=== PATIENT | female | born 1940 | race Caucasian/White ===

== ENCOUNTER 2017-06-14 13:34 | Inpatient (IN) | payer MEDICARE, BC ==
[~2017-06-14 13:34] MED LIST: ISOVUE-370 76%-LOCM 1 ML ONE
[2017-06-14 14:09] LABS: #Basophils 0.1 thou/uL (0.0-0.2); #Eosinphils 0.2 thou/uL (0.0-0.7); #Lymphocytes 2.4 thou/uL (1.20-3.40); #Monocytes 0.8 thou/uL (0.11-0.59); #Neutrophils 5.8 thou/uL (1.40-6.50); %Basophils 1.4 % (0.0-1.0); %Eosinophils 1.9 % (0.0-10.0); %Lymphocytes 25.6 % (21.0-51.0); %Monocytes 8.6 % (0.0-10.0); %Neutrophils 62.6 % (42.0-75.0); Hemoglobin 14.6 g/dL (12.0-16.0); Mean Corpuscular HGB CONC 33.9 g/dL (32.0-36.0); Mean Corpuscular Hemoglobin 32.7 pg (27.0-31.0); Mean Corpuscular Volume 96.4 fl (81.0-99.0); Mean Platelet Volume 7.4 fL (7.4-10.4); Platelet Count 205 thou/uL (130-400); RBC Distribution Width 11.6 % (11.5-14.5); Red Blood Cell (RBC) Count 4.47 mill/uL (4.20-5.40); White Blood Cell (WBC) Count 9.2 thou/uL (4.8-10.8)
--- NOTE | 2017-06-14 14:12 | RAD ---
SINGLE VIEW CHEST: Date: 06/14/17 COMPARISON: 08/28/13. HISTORY: Dyspnea and shortness of breath. FINDINGS: Single view of the chest shows normal sized cardiomediastinal silhouette with atherosclerotic calcifi cations in the aorta. A calcified granuloma is seen in the left upper lobe. There is no evidence of c onsolidation or pleural effusion. IMPRESSION: No evidence of acute cardiopulmonary disease. POS: [facility]
[2017-06-14 14:27] LABS: ALT (SGPT) 11 U/L (8-55); AST (SGOT) 13 U/L (5-34); Albumin 3.9 g/dL (3.4-4.8); Alkaline Phosphatase 93 U/L (40-150); Anion Gap 15 mmol/L (10-20); BUN (Urea Nitrogen) 26 mg/dL (9.8-20.1); Bilirubin, Total 0.6 mg/dL (0.2-1.2); CK (CPK) 34 U/L (29-168); Calc. Creatinine Clearance 0 mL/min (70-130); Calcium 9.7 mg/dL (7.8-10.44); Carbon Dioxide 21 mmol/L (23-31); Chloride 106 mmol/L (98-107); Estimated GFR-MDRD 67; Globulin 2.7 g/dL (2.4-3.5); Glucose 105 mg/dL (83-110); Potassium 3.7 mmol/L (3.5-5.1); Protein, Total 6.6 g/dL (6.0-8.3); Sodium 138 mmol/L (136-145)
[2017-06-14 14:32] LABS: CKMB 0.8 ng/mL (0-6.6); Troponin I Less than 0.010 ng/mL (< 0.028)
[2017-06-14 16:20] LABS: Troponin I Less than 0.010 ng/mL (< 0.028)
[2017-06-14] MEDS ORDERED: Ondansetron HCl/PF 4 MG/2 ML Vial IVP PRN (16:47)
[2017-06-14] MEDS ORDERED: Ondansetron ODT 4 MG TAB SL PRN (16:47)
[2017-06-14] MEDS ORDERED: Sodium Chloride 0.9% 1,000 ML IV SCH (16:47)
[2017-06-14 16:50] VITALS: BMI 27.1
[2017-06-14] MEDS ORDERED: Acetaminophen 325 MG TAB PO PRN (16:59)
[2017-06-14] MEDS ORDERED: Zolpidem Tartrate 5 MG TAB PO PRN (16:59)
[2017-06-14] MEDS ORDERED: Nitroglycerin 0.4 MG TAB (25 Tab Bottle) PO PRN (16:59)
[2017-06-14] MEDS ORDERED: ALPRAZolam 0.25 MG TAB PO PRN (17:04)
[2017-06-14 19:12] LABS: Troponin I Less than 0.010 ng/mL (< 0.028)
--- NOTE | 2017-06-14 19:13 | CON ---
DATE OF CONSULTATION: 06/14/2017 REASON FOR CONSULTATION: Shortness of breath. REFERRING PROVIDER: Dr. Johnathon Bruce. HISTORY OF PRESENT ILLNESS: Ms. Quinteros is a very pleasant 77-year-old woman with previous history of atrial fibrillation with ablation, who recently presented with shortness of breath. She states it began on Saturday. She bent over to bake something up and developed shortness of breath. It has been noted over the last 5 days. She states she has difficulty walking across the room due to shortness o f breath. No significant chest pain or pressure noted. She has no previous history of underlying co ronary disease. PAST MEDICAL HISTORY: atrial fibrillation, chronic back pain. PAST SURGICAL HISTORY: Cholecystectomy, hysterectomy. SOCIAL HISTORY: No current tobacco or alcohol use. ALLERGIES: None. MEDICATIONS: Include citalopram, levothyroxine, pantoprazole, captopril, Wellbutrin, and Meloxicam. REVIEW OF SYSTEMS: Ten-point review of systems reviewed and as above, otherwise negative. PHYSICAL EXAMINATION: GENERAL: Patient is a pleasant female who is in no acute distress. The patient appears her stated a ge. VITAL SIGNS: Blood pressure 139/64, pulse 92, respirations 20. NEUROLOGIC: The patient is alert and oriented times 3 with no focal neurologic deficits. HEENT: Sclerae without icterus. Mouth has moist mucous membranes with normal pallor. NECK: No JVD. Carotid upstroke brisk. No bruits bilaterally. LUNGS: Clear to auscultation with unlabored respirations. BACK: No scoliosis or kyphosis. CARDIAC: Regular rate and rhythm with normal S1 and S2. No S3 or S4 noted. No significant rubs, murmurs, thrills, or gallops noted throughout the precordium. PMI is not displa nataly. There is no parasternal heave. ABDOMEN: Soft, nontender, nondistended. No peritoneal signs present. No hepatosplenomegaly. No abnormal striae. EXTREMITIES: 2+ femoral and 2+ dorsalis pedis pulses. No cyanosis, clubbing, or edema. SKIN: No gross abnormalities. PERTINENT LABORATORY DATA: CO2 of 21, creatinine 0.83. CK and troponin negative. D-Dimer pending. EKG: Normal sinus rhythm and nonspecific ST-T wave changes. IMPRESSION: 1. Shortness of breath, acute onset. 2. Atrial fibrillation. RECOMMENDATIONS: Ms. Aldair symptoms, I would certainly suggest the cardiac origin. We will order D-Dimer to assess for potential PE. I would recommend a noninvasive test done in the a.m. if her D- dimer is negative. Further recommendations pending the above.
--- NOTE | 2017-06-14 20:20 | CT ---
CT ANGIOGRAM CHEST WITH CONTRAST 06/14/17 HISTORY: Elevated D-dimer. Shortness of breath. COMPARISON: Chest radiograph same day. TECHNIQUE: CT angiogram chest performed with intravenous administration of contrast. 3D rendering is provided. FINDINGS: Multifocal segmental pulmonary arterial filling defects. These involve the upper lobes, lower lobes, lingula, and right middle lobe. No pericardial effusion. No evidence for right heart strain. Pulmonary trunk size is 24 mm, normal. N o aneurysmal dilatation of the aorta. Mild atherosclerotic plaque. Multiple partially calcified mediastinal lymph nodes as well as splenic granulomas. No pneumothorax. No pericardial effusion. There is a ground glass opacity within the lingula which do es not have a definite appearance of atelectasis. No thoracic spine compression fracture. No displaced rib fracture. IMPRESSION: 1. Multifocal pulmonary emboli, segmental, without evidence of right heart strain. 2. Ground glass opacity lingula, not definitively atelectasis. Followup CT in three months recom mended. Reinier Pereira, nurse taking care of patient, notified of findings via telephone at 7:49 p.m. POS: [facility]
[2017-06-14] MEDS: Enoxaparin Sodium 80 MG/0.8 ML SYRINGE SC SCH (20:28)
[2017-06-14] MEDS: Metoprolol Tartrate 25 MG TAB PO SCH (20:30)
--- NOTE | 2017-06-14 21:13 | HP ---
DATE OF ADMISSION: 06/14/2017 ADMITTING PHYSICIAN: Johnathon Bruce M.D. HISTORY OF PRESENT ILLNESS: Patient is a 77-year-old female, well known to me. She has a previous h istory of atrial fibrillation and has undergone ablation approximately 6 years ago. She has had a re cent history of not feeling well, feeling some short of breath, states this become somewhat worse. T rosmery, she has felt like she could not exert herself fully without becoming dyspnea. She did note henrry t she bent over felt like her heart was racing, seemingly there is some chest discomfort. She seemed to have an associated left-arm symptomatology with some discomfort. She notes that the pain is reso lved, and she is feeling better at rest. She had brought herself to the emergency room. She notes t hat over the last several weeks, she is becoming increasingly breathless, especially with exertion. She has not noted any fever, nausea, vomiting. Actually, she denies any symptoms of chest pain at th is time. As noted, she has noted some palpitations. She felt like she has been in atrial fibrillati on, this has not been documented. She has been seen in my office over the last 2-3 months with some stress related issues. She has recently undergone MRI of the brain, which was normal. She was worri ed about having dementia, although she has not had any further dementia symptomatology other than her worries about it. At this time, she is currently resting, feeling comfortable, and no other medical complaints are noted. ALLERGIES: She has no known allergies. CURRENT MEDICATIONS: Citalopram 40 mg daily, levothyroxine 0.125 mg daily, pantoprazole 40 mg daily, captopril 25 mg b.i.d., Wellbutrin 150 mg daily, meloxicam 15 mg daily, alprazolam 0.25 mg b.i.d. p. r.n. anxiety. PAST MEDICAL HISTORY: Positive for the above noted atrial fibrillation. She has undergone ablations in the past with good success. Medical history is also positive for hypothyroidism, depression. PAST SURGICAL HISTORY: Positive for colon resection, hysterectomy, cholecystectomy. REVIEW OF SYSTEMS: Gastrointestinal: Negative. Genitourinary: Negative. Cardiovascular: Positiv e as above. Neurologic: Positive for her worries about dementia, although this seems to be relieved a little bit. Neuropsychiatric: She has stress at home. Her who is in a long-term and has severe dementia. Musculoskeletal: Otherwise, negative. FAMILY HISTORY: Positive for atherosclerotic coronary artery disease. PHYSICAL EXAMINATION: VITAL SIGNS: Her blood pressure is 160/74, pulse 92, respirations 22, O2 sat 96%. GENERAL: She is alert, active, does not appear in any distress. HEENT: Normocephalic, atraumatic. Extraocular muscles are intact. Pupils are equal, round, and samreen ctive to light. Throat is clear without exudates or hemorrhages. NECK: Supple, full range of motion, no masses. LUNGS: Clear. HEART: Reveals a regular rate and rhythm without murmurs, gallops, or rubs. ABDOMEN: Soft, nontender, bowel sounds are active. No hepatosplenomegaly is noted. No evidence of rebound or guarding otherwise noted. EXTREMITIES: No clubbing, edema, or cyanosis noted at this time. LABORATORY AND X-RAY FINDINGS: Chest x-ray is otherwise clear. Troponins x2 were normal. Chemistry : Sodium 138, potassium 3.7, chloride 106, CO2 of 21, BUN 26, creatinine 0.83. Hemoglobin 14.6, hem atocrit 43.0. EKG reveals sinus rhythm without acute changes. IMPRESSION: This is a 77-year-old female with previous history of atrial fibrillation, status post a blation, presents with symptoms appears to be anginal equivalent with dyspnea upon exertion, not have any chest pain, but story is very compatible with possible anginal. PLAN: Patient will be placed in observation. Cardiology consult will be obtained. I spoke with Dr. Bess about her. We will go ahead and order stress testing, further cardiac enzymes. I have di scussed the situation with the patient and family at the bedside. They are in full understanding of the process of workup and evaluation.
[2017-06-14] MEDS: ALPRAZolam 0.25 MG TAB PO PRN (22:02)
[2017-06-15] MEDS: Levothyroxine Sodium 100 MCG TAB PO SCH (05:56)
[2017-06-15 06:05] LABS: Cardiac Risk 2.7 (Less than 4.5)
--- NOTE | 2017-06-15 07:38 | ULT ---
BILATERAL LOWER EXTREMITY VENOUS DUPLEX ULTRASOUND INCLUDING COLOR AND SPECTRAL DOPPLER IMAGING: Date: 06/15/17 HISTORY: 77-year-old female with known pulmonary embolism. Elevated D-Dimer. TECHNIQUE: Exam performed from groin to ankle including visualized greater saphenous, common femoral, superficia l femoral, profunda femoral, popliteal, trifurcation, and posterior tibial vein regions. FINDINGS: The right lower extremity shows no evidence of deep venous thrombosis. In the left lower extremity, there is evidence for intraluminal thrombus within the left popliteal ve in and posterior tibial vein, and the distal superficial femoral vein. IMPRESSION: Persistent thrombus in the distal superficial femoral vein, popliteal vein, and posterior tibial vein . Findings were discussed with nurse, Vicky, on the floor at 0730 hours. CODE CR. POS: [facility]
[2017-06-15] MEDS: Aspirin 325 MG TAB PO SCH (08:18)
[2017-06-15] MEDS: Citalopram 20 MG TAB PO SCH (08:18)
[2017-06-15] MEDS: Enoxaparin Sodium 80 MG/0.8 ML SYRINGE SC SCH (08:18)
[2017-06-15] MEDS: Metoprolol Tartrate 25 MG TAB PO SCH ×2 (08:18→20:48)
[2017-06-15] MEDS ORDERED: Levothyroxine Sodium 100 MCG TAB PO SCH (09:00)
[2017-06-15] MEDS ORDERED: Aspirin 325 MG TAB PO SCH (09:00)
[2017-06-15] MEDS ORDERED: Enoxaparin Sodium 40 MG/0.4 ML SYRINGE SC SCH (09:00)
--- NOTE | 2017-06-15 11:27 | PRG ---
DATE OF SERVICE: 06/15/2017 PRIMARY CARE PHYSICIAN: Dr. Johnathon Bruce. SUBJECTIVE: The patient is feeling much better. Suddenly today, she had no shortness of breath. Denies chest pain. She is ambulating in the room without difficulty, not requiring oxygen at this time. She denies nausea and vomiting. She tolerated a CT as well as venous Dopplers, and is tolerating blood thinners without any difficulties at this time. OBJECTIVE: VITAL SIGNS: Temperature 97.8, pulse of 68-81, blood pressure 137/62, respirations 18, pulse ox 96% on room air. GENERAL: She is awake and alert, in no acute distress. Speech is clear. NECK: Supple. HEART: Regular rate and rhythm. LUNGS: Clear bilaterally. ABDOMEN: Soft. EXTREMITIES: With some calf tenderness on the left side, indeterminate Homans sign on the left calf. LABORATORY DATA: White blood cell count 9.2 thousand, hemoglobin and hematocrit 14.6 and 43, platelets of 205. D-dimer was elevated at 4.53. Cholesterol 149, HDL of 56. Troponins have been negative x3. BNP was normal at 30.5. CT angiogram was positive for multifocal pulmonary emboli. Venous Dopplers revealed left-sided DVT. ASSESSMENT AND PLAN: This is a 77-year-old female who presented with worsening shortness of breath and some chest pain, now found to have bilateral multifocal PE, she was started on subcutaneous Lovenox last night and will be starting on p.o. Xarelto today for PE as well as DVT. Etiology is likely from trauma this past week and immobility at home. When she has completed 3-6 months period of anticoagulation, we will consider checking for a hypercoagulable state. I will await Dr. Pope for evaluation. I discussed possibility of an IVC filter placement. 1. Multilobar pulmonary embolism. Will transition to oral Xarelto. Possible IVC filter 2. DVT. Start Xarelto. 3. Atrial fibrillation, rate controlled at this time. Anticoagulation as above. We will prevent coagulation from the atrial fibrillation as well. 4. Hypertension is stable. 5. Anxiety with depression. I will continue home meds. MTDD
[2017-06-15 14:15] LABS: Hemoglobin 13.7 g/dL (12.0-16.0); Platelet Count 170 thou/uL (130-400)
[2017-06-15 15:45] LABS: INR-International Normal Ratio 1.1
[2017-06-15 15:46] LABS: PTT 36.7 SEC (22.9-36.1)
[2017-06-15 15:47] LABS: D-Dimer Test 2.59 *mcg/mL (0.27-0.43)
--- NOTE | 2017-06-15 16:11 | CON ---
DATE OF CONSULTATION: 06/15/2017 HISTORY OF PRESENT ILLNESS: A 77-year-old female from [place], [place] presented with about a week h istory of weakness, shortness of breath, lightheadedness. She called her primary care physician and felt that she was having some palpitations and lightheadedness. Apparently, she has previous history of atrial fibrillation which was treated with ablation. Nonsmoker. No history of TB, pneumonia or bronchial asthma. D-dimer study was done, which was positive. CAT scan of the chest showed bilateral pulmonary emboli. Ultrasound of the legs shows left-sided superficial DVT in the femoral vein and popliteal vein. She was started on Lovenox, today she was on Xarelto. No previous history of DVT or PE. No family history of PE or DVT. PAST MEDICAL HISTORY: Pertinent only for cardiac arrhythmias. PAST SURGICAL HISTORY: In the remote past, cholecystectomy and colon surgery. MEDICATIONS: From home includes Celexa, Synthroid 25, Protonix 40, Captopril 25, Wellbutrin and Mayo xicam. 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 REVIEW OF SYSTEMS: Otherwise, 10-point negative. PHYSICAL EXAMINATION: VITAL SIGNS: Sats 93 on room air, temperature 97, pulse 79, and blood pressure 120/60. CHEST: Decreased breath sounds, no wheezing. CARDIAC: Normal S1, S2. No gallops. ABDOMEN: Soft, no masses. LABORATORY DATA: D-dimer was 5.3. White count 9000, H and H 14 and 43, platelet count is normal. C hemistry unremarkable. X-ray was normal. Thyroid function is normal. CAT scan shows bilateral pulm onary emboli. IMPRESSION: 1. Bilateral pulmonary emboli with left leg deep venous thrombosis and no obvious cause of above pro blem. 2. Previous colon polyps, last colonoscopy. 3. Depression. 4. Hypothyroidism. PLAN: She needs anticoagulants for a minimum of 6 months and I ordered a hypercoagulable profile. She is to have increased level of activity. I would be happy to see her in a month. We will repeat VQ scan in the office at that time.
[2017-06-15] MEDS: Rivaroxaban 15 MG TAB PO SCH (20:47)
[2017-06-15] MEDS: ALPRAZolam 0.25 MG TAB PO PRN (20:48)
[2017-06-16] MEDS: Levothyroxine Sodium 100 MCG TAB PO SCH (05:29)
[2017-06-16 05:33] LABS: #Eosinphils 0.7 thou/uL (0.0-0.7); #Lymphocytes 3.1 thou/uL (1.20-3.40); #Monocytes 0.5 thou/uL (0.11-0.59); #Neutrophils 2.2 thou/uL (1.40-6.50); %Basophils 0.6 % (0.0-1.0); %Lymphocytes 46.9 % (21.0-51.0); %Monocytes 8.1 % (0.0-10.0); %Neutrophils 33.4 % (42.0-75.0); Hemoglobin 12.9 g/dL (12.0-16.0); Mean Corpuscular HGB CONC 34.3 g/dL (32.0-36.0); Mean Corpuscular Hemoglobin 32.7 pg (27.0-31.0); Mean Corpuscular Volume 95.4 fl (81.0-99.0); Mean Platelet Volume 8.6 fL (7.4-10.4); Platelet Count 195 thou/uL (130-400); RBC Distribution Width 11.6 % (11.5-14.5); Red Blood Cell (RBC) Count 3.93 mill/uL (4.20-5.40); White Blood Cell (WBC) Count 6.6 thou/uL (4.8-10.8)
[2017-06-16] MEDS: Famotidine 20 MG TAB PO SCH (08:56)
[2017-06-16] MEDS: Rivaroxaban 15 MG TAB PO SCH ×2 (08:56→20:48)
[2017-06-16] MEDS: Citalopram 20 MG TAB PO SCH (08:56)
[2017-06-16] MEDS: Aspirin 325 MG TAB PO SCH (08:57)
[2017-06-16] MEDS: Metoprolol Tartrate 25 MG TAB PO SCH (09:01)
--- NOTE | 2017-06-16 15:49 | DIS ---
DATE OF ADMISSION: 06/14/2017 DATE OF DISCHARGE: 06/16/2017 ADMISSION DIAGNOSES: Bilateral pulmonary embolism, left deep venous thrombosis. DISCHARGE DIAGNOSES: Bilateral pulmonary embolism, left deep venous thrombosis. OTHER DIAGNOSES: Paroxysmal atrial fibrillation, anxiety, hypothyroidism, depression. CONSULTATIONS: Dr. Pope for Pulmonary. PROCEDURES: Subcutaneous Lovenox, telemetry monitoring, rule out myocardial infarction. HOSPITAL COURSE: This is a 77-year-old patient of Dr. Johnathon Bruce with a history of paroxysmal atr ial fibrillation status post ablation 6 years ago, who was admitted for shortness of breath worse wit h exertion. She was admitted with rule out NH protocol. She eventually ruled out for an NH. She wa s seen by Dr. Bess. She was found to have elevated D-dimer and then subsequently had a positive CT angiogram of her chest which revealed bilateral multifocal pulmonary emboli. Her DVT screen of h er venogram was positive for DVT on her left leg. She was initially started on subcu Lovenox and the n transitioned to oral Xarelto and has been tolerating that well. She had one episode of shortness o f breath after getting up in the morning, but that resolved spontaneously and she was feeling back to her baseline prior to discharge. Coagulation studies were pending to be followed up as an outpatien t as well as with Dr. Pope as an outpatient. DISCHARGE PHYSICAL EXAMINATION: VITAL SIGNS: Temperature 98.1, pulse of 68 and regular, respirations 18-20, blood pressure 124/57. Pulse ox is 95% on room air. GENERAL: She is awake and alert. Speech is clear. No conversational dyspnea. NECK: Supple. HEART: Regular rate and rhythm. LUNGS: Clear bilaterally. ABDOMEN: Soft. EXTREMITIES: With no edema. DISCHARGE LABS: Homocystine was normal. Cholesterol panel was normal. Troponin was negative x3. A gain, coagulation panel was pending. Hemoglobin and hematocrit 12.9 and 37.5. DISCHARGE MEDICATIONS: Include Tylenol p.r.n., Xanax 0.25 mg at bedtime p.r.n. sleep, captopril 25 m g b.i.d., Celexa 40 mg daily, Synthroid 100 mcg daily, Lopressor 25 mg b.i.d., Xarelto 15 mg b.i.d. f or 21 days and then 20 mg daily for 6 months. FOLLOWUP INSTRUCTIONS: The patient to follow up with Dr. Bruce in [address] Pope in 1 dipak h.
--- NOTE | 2017-06-16 18:21 | PRG ---
DATE OF SERVICE: 06/16/2017 SUBJECTIVE: This morning, she is better. She is little bit hypertensive, but denies any shortness o f breath or cough. OBJECTIVE: VITAL SIGNS: Sats are 90% on room air, pulse 56, blood pressure 160/70, respiratory rate 18. CHEST: Chest reveals decreased breath sounds, no wheezing. CARDIAC: Normal S1, S2. ABDOMEN: Soft, no masses. LABORATORY DATA: White count 6, H and H is 12 and 37, platelet count is normal. IMPRESSION: 1. Pulmonary embolism, deep venous thrombosis. 2. Bradycardia. PLAN: Tylenol, continue Xarelto. Hopefully, she is stable for discharge home. Six months of anticoagulation.
[2017-06-16] MEDS: ALPRAZolam 0.25 MG TAB PO PRN (20:48)
[2017-06-17] MEDS: Levothyroxine Sodium 100 MCG TAB PO SCH (06:06)
--- NOTE | 2017-06-17 07:42 | DPRG ---
DATE OF SERVICE: 06/17/2017 Ms. Quinteros was discharged yesterday; however, she spent one more night in the hospital due to short ness of breath. She has had no further shortness of breath or dyspnea. She is feeling well. She is ready to go home. PHYSICAL EXAMINATION: VITAL SIGNS: BP 124/62, pulse 75 and regular, temperature 99.3. LUNGS: Clear. HEART: Reveals no murmur. IMPRESSION: Pulmonary embolus. PLAN: She will be discharged home today on her home medications as well as Xarelto 15 mg b.i.d. She will follow up with me in 1 week.
[2017-06-17 08:35] VITALS: BP 129/59; TEMP 98.8
[2017-06-17] MEDS: Rivaroxaban 15 MG TAB PO SCH (09:12)
[2017-06-17] MEDS: Famotidine 20 MG TAB PO SCH (09:12)
[2017-06-17] MEDS: Citalopram 20 MG TAB PO SCH (09:12)
[2017-06-17] MEDS: Aspirin 325 MG TAB PO SCH (09:12)
[2017-06-17 12:29] LABS: Protein C Activity 114 % (78-152)
[2017-06-17 12:30] LABS: Factor VIII Test 230.6 % ACTIVE (56-157)
[2017-06-25 11:25] LABS: Activated Protein C Resistance 2.9 ratio (.); Hexagonal Phospholipid Neut 4 sec (.)
--- NOTE | 2017-07-11 19:06 | EKG ---
Test Reason : Blood Pressure : / mmHG Vent. Rate : 060 BPM Atrial Rate : 060 BPM P-R Int : 164 ms QRS Dur : 084 ms QT Int : 426 ms P-R-T Axes : 000 035 060 degrees QTc Int : 426 ms Normal sinus rhythm Normal ECG When compared with ECG of 14-JUN-2017 13:39, (Unconfirmed) Vent. rate has decreased BY [address] elevation now present in Anterior leads Confirmed by DR. Dionisio SIMPSON ([id number]) on 07/11/2017 7:06:32 PM Referred By: JACKSON Confirmed By:DR. Dionisio SIMPSON
== END 2017-06-17 09:32 | disposition home or self-care (01) | DRG 176 ==
LOC: ERS 13:34 → 2SW 16:40 → OBSVTOIN 20:11 → 2NO 21:54
PROVIDERS: ADMIT Family Medicine; ATTEND Family Medicine
DX: I26.99 Other pulmonary embolism without acute cor pulmonale (principal); I48.0 Paroxysmal atrial fibrillation; I82.412 Acute embolism and thrombosis of left femoral vein; I82.432 Acute embolism and thrombosis of left popliteal vein; F41.9 Anxiety disorder, unspecified; E03.9 Hypothyroidism, unspecified; F32.9 Major depressive disorder, single episode, unspecified; Z90.49 Acquired absence of other specified parts of digestive tract; Z90.710 Acquired absence of both cervix and uterus; R00.1 Bradycardia, unspecified
CPT/HCPCS: 36415; 36416; 71045; 71275; 80053; 80061; 81240; 82550; 82553; 82565; 83090; 83605; 83880; 84484; 85014; 85018; 85025; 85049; 85240; 85300; 85303; 85305; 85307; 85379; 85598; 85610; 85730; 87040; 87804; 93005; 93010; 93970; 94760; J1650

== ENCOUNTER 2017-07-05 12:54 | Emergency (ER) | payer MEDICARE, BC ==
[2017-07-05 13:30] LABS: #Eosinphils 0.2 thou/uL (0.0-0.7); #Lymphocytes 2.7 thou/uL (1.20-3.40); #Monocytes 0.4 thou/uL (0.11-0.59); #Neutrophils 4.4 thou/uL (1.40-6.50); %Basophils 0.6 % (0.0-1.0); %Eosinophils 2.1 % (0.0-10.0); %Lymphocytes 34.5 % (21.0-51.0); %Monocytes 5.8 % (0.0-10.0); Hemoglobin 14.5 g/dL (12.0-16.0); Mean Corpuscular HGB CONC 33.9 g/dL (32.0-36.0); Mean Corpuscular Hemoglobin 32.5 pg (27.0-31.0); Mean Corpuscular Volume 95.8 fl (81.0-99.0); Platelet Count 305 thou/uL (130-400); RBC Distribution Width 11.7 % (11.5-14.5); Red Blood Cell (RBC) Count 4.46 mill/uL (4.20-5.40); White Blood Cell (WBC) Count 7.7 thou/uL (4.8-10.8)
--- NOTE | 2017-07-05 13:45 | RAD ---
PORTABLE CHEST 1 VIEW: Date: 07/05/17 Time: 1413 hours HISTORY: Dyspnea. FINDINGS: Comparison made with exam of 06/14/17. The heart size is normal. The lungs are well expanded without focal areas of consolidation, pneumotho rax, or pleural effusions. IMPRESSION: No radiographic evidence of acute cardiopulmonary process. POS: [facility]
[2017-07-05 13:55] LABS: ALT (SGPT) 9 U/L (8-55); AST (SGOT) 13 U/L (5-34); Alkaline Phosphatase 92 U/L (40-150); Anion Gap 11 mmol/L (10-20); BUN (Urea Nitrogen) 24 mg/dL (9.8-20.1); Bilirubin, Total 0.4 mg/dL (0.2-1.2); CK (CPK) 31 U/L (29-168); Calc. Creatinine Clearance 0 mL/min (70-130); Calcium 9.5 mg/dL (7.8-10.44); Carbon Dioxide 26 mmol/L (23-31); Chloride 107 mmol/L (98-107); Estimated GFR-MDRD 72; Globulin 2.8 g/dL (2.4-3.5); Glucose 93 mg/dL (83-110); Potassium 3.9 mmol/L (3.5-5.1); Protein, Total 6.8 g/dL (6.0-8.3); Sodium 140 mmol/L (136-145)
[2017-07-05 13:56] LABS: CKMB 0.8 ng/mL (0-6.6); Troponin I Less than 0.010 ng/mL (< 0.028)
[2017-07-05 14:16] LABS: INR-International Normal Ratio 2.1; PTT 35.9 SEC (22.9-36.1); Prothrombin Time 24.4 SEC (12.0-14.7)
== END 2017-07-05 17:28 | disposition home or self-care (01) ==
LOC: ERS 12:54
DX: R06.00 Dyspnea, unspecified (principal); R53.81 Other malaise; I48.91 Unspecified atrial fibrillation; E03.9 Hypothyroidism, unspecified; I10 Essential (primary) hypertension; F41.9 Anxiety disorder, unspecified; Z79.899 Other long term (current) drug therapy
CPT/HCPCS: 36415; 71045; 80053; 82553; 83880; 84484; 85025; 85379; 85610; 85730; 93005

== ENCOUNTER 2017-11-12 12:01 | Outpatient (CLI) | payer MEDICARE, BC ==
--- NOTE | 2017-11-12 14:32 | RAD ---
CHEST TWO VIEWS: HISTORY: Pulmonary embolism. COMPARISON: Radiograph from 07/05/2017. FINDINGS: The lungs are clear. No pneumothorax or effusion. The cardiac silhouette and mediastinal contour ar e within normal limits. IMPRESSION: No acute intrathoracic abnormality. POS: [facility]
--- NOTE | 2017-11-12 15:15 | NM ---
VQ SCAN: Date: 11/12/17 HISTORY: Pulmonary embolism without acute cor pulmonale. TECHNIQUE: Ventilation perfusion scan performed using 15 mCi Xenon-133 by inhalation for the ventilation study f ollowed by the intravenous administration of 5.5 mCi technetium-99m MAA for the perfusion scan. FINDINGS: Correlation is made with the chest radiographs from same date. Homogeneous tracer distribution is seen in the lung martinez on both ventilation and perfusion scans wi thout mismatched, pleural based, wedge-shaped, segmental or subsegmental defects. Mild tracer retenti on on the washout phase of the ventilation study. IMPRESSION: Very low probability for pulmonary embolism. POS: [facility]
== END 2017-11-12 12:02 | disposition home or self-care (01) ==
LOC: NM 12:01
PROVIDERS: ATTEND Internal Medicine Pulmonary Disease
DX: I26.99 Other pulmonary embolism without acute cor pulmonale (principal)
CPT/HCPCS: 71046; 78582; A9540; A9558

== ENCOUNTER 2018-02-02 20:36 | Emergency (ER) | payer MEDICARE, BC ==
[2018-02-02 20:55] LABS: #Basophils 0.1 thou/uL (0.0-0.2); #Eosinphils 0.3 thou/uL (0.0-0.7); #Lymphocytes 4.1 thou/uL (1.20-3.40); #Monocytes 0.6 thou/uL (0.11-0.59); #Neutrophils 4.4 thou/uL (1.40-6.50); %Basophils 0.7 % (0.0-1.0); %Eosinophils 2.8 % (0.0-10.0); %Lymphocytes 43.6 % (21.0-51.0); %Monocytes 6.2 % (0.0-10.0); %Neutrophils 46.7 % (42.0-75.0); Hemoglobin 14.5 g/dL (12.0-16.0); Mean Corpuscular HGB CONC 35.2 g/dL (32.0-36.0); Mean Corpuscular Hemoglobin 33.1 pg (27.0-31.0); Mean Platelet Volume 6.5 fL (7.4-10.4); Platelet Count 278 thou/uL (130-400); RBC Distribution Width 11.7 % (11.5-14.5); White Blood Cell (WBC) Count 9.4 thou/uL (4.8-10.8)
[2018-02-02 21:20] LABS: CKMB 1.6 ng/mL (0-6.6); Troponin I Less than 0.010 ng/mL (< 0.028)
[2018-02-02 21:22] LABS: ALT (SGPT) 28 U/L (8-55); AST (SGOT) 37 U/L (5-34); Albumin 4.1 g/dL (3.4-4.8); Alkaline Phosphatase 110 U/L (40-150); Anion Gap 13 mmol/L (10-20); BUN (Urea Nitrogen) 28 mg/dL (9.8-20.1); Bilirubin, Total 0.2 mg/dL (0.2-1.2); CK (CPK) 50 U/L (29-168); Calc. Creatinine Clearance 0 mL/min (70-130); Calcium 9.5 mg/dL (7.8-10.44); Carbon Dioxide 25 mmol/L (23-31); Chloride 106 mmol/L (98-107); Estimated GFR-MDRD 64; Globulin 2.9 g/dL (2.4-3.5); Glucose 81 mg/dL (83-110); Potassium 4.4 mmol/L (3.5-5.1); Sodium 140 mmol/L (136-145)
--- NOTE | 2018-02-02 21:34 | RAD ---
RADIOGRAPH CHEST 1 VIEW: HISTORY: 77-year-old female with dyspnea. FINDINGS: There are no air space densities, pulmonary edema, pneumothorax, or cardiomegaly. The lateral costop hrenic angles are sharp. IMPRESSION: No acute cardiopulmonary findings. lyle POS: [facility]
--- NOTE | 2018-02-02 22:19 | CT ---
CTA THORAX WITH CONTRAST: (Computed Tomographic Angiography, chest(noncoronary) with contrast material, and image postprocessin g) (PE protocol) HISTORY: 77-year-old female with dyspnea. TECHNIQUE: IV injection of iodinated contrast: Isovue Scan acquisition timing attempted to coincide with iodinated contrast bolus reaching maximal density in pulmonary arteries. 3D MIP reconstructions. FINDINGS: Pulmonary thromboembolism: None. Lungs: Clear. Pneumothorax: None. Pleural effusion: None. Thoracic aorta: No aneurysm or dissection. Mediastinum: No lymphadenopathy or other mass. Indira: No lymphadenopathy or other mass. IMPRESSION: Normal. lyle POS: [facility]
== END 2018-02-03 01:08 | disposition home or self-care (01) ==
LOC: ERS 20:36
DX: R06.02 Shortness of breath (principal); R09.89 Other specified symptoms and signs involving the circulatory and respiratory systems; I48.91 Unspecified atrial fibrillation; E03.9 Hypothyroidism, unspecified; I10 Essential (primary) hypertension; F41.9 Anxiety disorder, unspecified; Z79.899 Other long term (current) drug therapy
CPT/HCPCS: 71045; 71275; 80053; 82553; 84484; 85025; 93005

== ENCOUNTER 2019-02-26 09:31 | Outpatient (CLI) | payer MEDICARE, BC ==
[2019-02-26 10:38] LABS: Bacteria/HPF None Seen HPF (None Seen); Bilirubin Negative (Negative); Blood, Urine 1+ (Negative); Clarity Clear (Clear); Glucose, Urine (Dipstick) Normal (Negative); Leukocyte 75 Leu/uL (Negative); Nitrite Negative (Negative); Protein, Urine (Dipstick) Negative (Neg-Trace); Squamous Epithelial 0-3 HPF (0-3); Urobilinogen Normal mg/dL (Less than 2); WBC/HPF 0-3 HPF (0-3)
[2019-02-26 13:20] LABS: #Basophils 0.1 thou/uL (0.0-0.2); #Eosinphils 0.1 thou/uL (0.0-0.7); #Monocytes 0.6 thou/uL (0.11-0.59); #Neutrophils 4.4 thou/uL (1.40-6.50); %Basophils 0.9 % (0.0-1.0); %Eosinophils 1.7 % (0.0-10.0); %Monocytes 7.7 % (0.0-10.0); %Neutrophils 53.7 % (42.0-75.0); Hemoglobin 14.4 g/dL (12.0-16.0); Mean Corpuscular Hemoglobin 32.7 pg (27.0-31.0); Mean Corpuscular Volume 93.2 fL (78.0-98.0); Mean Platelet Volume 7.4 fL (7.4-10.4); Platelet Count 297 thou/uL (130-400); RBC Distribution Width 11.6 % (11.5-14.5); White Blood Cell (WBC) Count 8.3 thou/uL (4.8-10.8)
[2019-02-26 13:27] LABS: PTT 25.7 SEC (22.9-36.1); Prothrombin Time 12.7 SEC (12.0-14.7)
[2019-02-26 13:49] LABS: Anion Gap 12 mmol/L (10-20); BUN (Urea Nitrogen) 22 mg/dL (9.8-20.1); Calc. Creatinine Clearance 0 mL/min (70-130); Calcium 9.7 mg/dL (7.8-10.44); Carbon Dioxide 23 mmol/L (23-31); Chloride 106 mmol/L (98-107); Estimated GFR-MDRD 62; Glucose 96 mg/dL (83-110); Potassium 3.5 mmol/L (3.5-5.1); Sodium 137 mmol/L (136-145)
== END 2019-02-26 09:32 | disposition home or self-care (01) ==
LOC: LABBT 09:31
PROVIDERS: ATTEND Orthopaedic Surgery
DX: Z01.818 Encounter for other preprocedural examination (principal); M17.12 Unilateral primary osteoarthritis, left knee
CPT/HCPCS: 80048; 81001; 85025; 85610; 85730; 87081; 93005; 93010

== ENCOUNTER 2019-03-10 05:33 | Inpatient (IN) | payer MEDICARE, BC ==
[2019-02-26 11:57] VITALS: BMI 26.5
[2019-03-10] MEDS ORDERED: Sodium Chloride 0.9% 100 ML ONE (05:52)
[2019-03-10] MEDS ORDERED: Tranexamic Acid 1,000 MG/10 ML VIAL ONE (05:52)
[2019-03-10] MEDS ORDERED: Vancomycin HCl 1.5 GM in Sodium Chloride 0.9% 250 ML 300 ML IVPB SCH (06:00)
[2019-03-10] MEDS ORDERED: Midazolam HCl 2 mg/2 ml Vial ONE (06:26)
[2019-03-10] MEDS ORDERED: Fentanyl 100 MCG/2 ML VIAL ONE (06:26)
[2019-03-10] MEDS ORDERED: Ondansetron PF 4 MG/2 ML Vial ONE ×2 (06:41→12:18)
[2019-03-10] MEDS ORDERED: Zolpidem Tartrate 5 MG TAB PO PRN ×2 (07:02→07:11)
[2019-03-10] MEDS ORDERED: Ondansetron PF 4 MG/2 ML Vial IVP PRN (07:02)
[2019-03-10] MEDS ORDERED: diphenhydrAMINE 25 MG CAP PO PRN (07:02)
[2019-03-10] MEDS ORDERED: Acetaminophen 325 MG TAB PO PRN ×2 (07:07→07:14)
[2019-03-10] MEDS ORDERED: Ropivacaine HCl/PF 250 ML in Premix Bag 1 BAG NERVE BLCK SCH (07:11)
[2019-03-10] MEDS ORDERED: Promethazine HCl 25 MG/ML VIAL IM PRN ×2 (07:11→08:03)
[2019-03-10] MEDS ORDERED: HYDROcodone/Acetaminophen 10/325 mg Tablet PO PRN ×2 (07:11)
[2019-03-10] MEDS ORDERED: Ondansetron HCl/PF 4 MG/2 ML Vial IVP PRN (08:03)
[2019-03-10] MEDS ORDERED: Promethazine HCl 25 MG/ML VIAL SLOW IVP PRN (08:03)
[2019-03-10] MEDS ORDERED: Aspirin 81 mg Enteric Coated Tablet PO SCH (09:00)
--- NOTE | 2019-03-10 09:22 | RAD ---
Exam:2 views left knee HISTORY: Status post arthroplasty COMPARISON: None FINDINGS: Expected postoperative changes. Alignment is near-anatomic. IMPRESSION: Findings compatible with left knee arthroplasty.
[2019-03-10] MEDS: Fentanyl 100 MCG/2 ML VIAL SLOW IVP PRN ×2 (10:14→16:15)
[2019-03-10] MEDS ORDERED: Ropivacaine 0.2% HCl/PF (40 MG/20 ML VIAL) ONE (10:54)
[2019-03-10] MEDS ORDERED: Ropivacaine 0.5% HCl/PF (150 MG/30 ML VIAL) ONE (10:54)
[2019-03-10] MEDS: HYDROcodone/Acetaminophen 10/325 mg Tablet PO PRN ×2 (12:12→20:47)
[2019-03-10] MEDS ORDERED: PROPOFOL 200 MG/20 ML VIAL ONE (12:18)
[2019-03-10] MEDS ORDERED: Lidocaine 1% PF 5 ML VIAL ONE (12:18)
--- NOTE | 2019-03-10 13:12 | PDOC.HOSPP ---
- Subjective Encounter Date: 03/10/19 Encounter Time: 13:00 Subjective: no chest pain or sob or palp is waking up can move her left LE daughter at bedside - Objective Vital Signs & Weight: Weight Weight 185 lb I&O: 03/09/19 03/10/19 03/11/19 06:59 06:59 06:59 Output Total 100 Balance -100 Hospitalist ROS - Medication Medications: Active Medications Generic Name Dose Route Start Last Admin Trade Name Freq PRN Reason Stop Dose Admin Hydrocodone Bitart/Acetaminophen 1 tab 03/10/19 07:02 03/10/19 12:12 [place] 10/325 PO 1 tab Q4H PRN Administration Moderate Pain (4-6) Fentanyl 50 mcg 03/10/19 07:12 03/10/19 10:14 Sublimaze SLOW IVP 50 mcg Q1H PRN Administration Breakthrough Pain - Exam General Appearance: NAD, awake alert Eye: PERRL, anicteric sclera ENT: normocephalic atraumatic, no oropharyngeal lesions, dry oral mucosa Neck: supple, no JVD Heart: RRR, no murmur Respiratory: no wheezes, no rales Gastrointestinal: soft, non-tender, non-distended, normal bowel sounds Extremities: no cyanosis, no edema Extremities - other findings: left knee in dressing Neurological: cranial nerve grossly intact, no focal deficits Hosp A/P (1) Status post total knee replacement, left Code(s): Z96.652 - PRESENCE OF LEFT ARTIFICIAL KNEE JOINT Status: Acute (2) HTN (hypertension) Code(s): I10 - ESSENTIAL (PRIMARY) HYPERTENSION Status: Chronic Qualifiers: Hypertension type: essential hypertension Qualified Code(s): I10 - Essential (primary) hypertension (3) Hypothyroidism Code(s): E03.9 - HYPOTHYROIDISM, UNSPECIFIED Status: Chronic Qualifiers: Hypothyroidism type: unspecified Qualified Code(s): E03.9 - Hypothyroidism , unspecified (4) GERD (gastroesophageal reflux disease) Code(s): K21.9 - GASTRO-ESOPHAGEAL REFLUX DISEASE WITHOUT ESOPHAGITIS Status: Chronic Qualifiers: Esophagitis presence: esophagitis presence not specified Qualified Code(s) : K21.9 - Gastro-esophageal reflux disease without esophagitis - Plan continue lovenox 30mg bid for dvt prophylaxis on protonix, citalopram, synthroid, captopril and lopressor toradol, ropivacaine block, norco prn will f/u
[2019-03-10] MEDS: CEFAZOLIN 2 GM in Premix Bag 1 BAG IVPB SCH ×2 (13:42→21:48)
--- NOTE | 2019-03-10 15:14 | OP ---
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 PROCEDURE PERFORMED: Cemented cruciate-sparing computer-assisted navigated left total knee arthroplasty. PRINT BINDING WORKER: Jovani Finch PA-C ANESTHESIA: General via LMA augmented with indwelling adductor canal block and a single-shot sciatic block. COMPONENTS USED: [employer] Triathlon size 5 cruciate-sparing cemented femoral component with a size 4 cemented primary tibial baseplate, 9 mm polyethylene fixed bearing insert, A29 patella button. TOURNIQUET TIME: 50 minutes at 300 mmHg. INPUT: 1 L of crystalloid. OUTPUT: 100 mL of clear yellow urine. ESTIMATED BLOOD LOSS: Less than 100. FINDINGS: End-stage severe degenerative tricompartmental disease, [id number] arthrosis, periarticular osteophyte formation, large serous effusion, hypertrophic synovium, changes consistent with degenerative genu valgum. DRAINS: None. SPECIMENS: None. COMPLICATIONS: None. COUNTS: Correct. INDICATION FOR SURGERY: Love is a 78-year-old white female, who has had progressive left knee pain and problem with standing and walking for the last 5 to 7 years. She has failed conservative management, elected to proceed with total knee arthroplasty as definitive treatment of her pain. PROCEDURE IN DETAIL: After informed consent was obtained in the preoperative holding area, the patient was taken to the operative suite where general anesthesia was induced. Once adequate level of general anesthesia was obtained, the patient was positioned and a well-padded tourniquet was placed around the left proximal thigh. The left lower extremity was then prepped and draped in the usual sterile fashion. Prior to exsanguination, a time-out was called and all members of the surgical team agreed upon site, surgeon, and patient. The extremity was then exsanguinated and the tourniquet was raised. A midline longitudinal incision was then made directly over the patella extending 2 fingerbreadths above the superior pole of the patella and 2 fingerbreadths inferior to the inferior patellar pole of the patella. Deeper subcutaneous layers were dissected sharply and local bleeding was controlled with Bovie electrocautery. A quad tendon longitudinal split was then made sharply and a median parapatellar arthrotomy was carried out both sharp and with Bovie electrocautery, carried down to 1 fingerbreadth medial to the tibial tubercle. The knee was then placed into flexion and the patella was everted nicely, and a copious fat pad ectomy was performed allowing for greater exposure of the tibia. The computer-assisted distal femoral fiducial was then placed and pinned firmly, and the distal femoral cutting guide was pinned firmly into place. The oscillating saw was then used to remove the appropriate amount of bone. The 4-in-1 cutting block was then placed on the distal femur and the oscillating saw was used to remove the appropriate amount of bone off the anterior, posterior, and chamfer cuts. After completion of bone cuts, the anterior cruciate ligament was resected sharply and the posterior cruciate ligament retractor was placed and the tibia was subluxed for better exposure. Partial meniscectomies were carried out, and the tibial computer-assisted fiducial was pinned, and the cutting guide was placed. Oscillating saw was then used to remove the bone, with Hohmann retractors used to take care and protect the collateral ligaments. After the tibial resection was performed, a laminar curriculum coach was placed in between the freshened bone cuts. The knee placed at 90 degrees and further bilateral meniscectomies were carried out, and the curved osteotome and curettage were used to remove any excess bone spurs in the posterior compartment. The trial femoral component, tibial baseplate were placed with the appropriate polyethylene trial insert with an appropriate polyethylene spacer and patellar button. The knee was taken through full range of motion with flexion and extension from 0 to 90 degrees and patellar broach squarely in the trochlea without any squinting or subluxation noted. The knee was also stable to varus and valgus stressing at 0, 15, 45, and 90 degrees of flexion. The drawer was negative. All trial components were then removed and the keel punch was used to provide the appropriate defect in the tibia with a mallet. The freshened bone cuts were copiously irrigated with pulsatile lavage of about 1.5 L to remove all excess debris. The freshened bone cuts were then dried with suction and lap sponge. The knee was placed in flexion and retractors were placed to provide access to all bone cuts. Tobramycin-impregnated methyl methacrylate cement was then placed on the freshened bone cuts and implants which were malleted firmly into place. Curettage and [place] elevators were used to remove any excess bone cement. The knee was placed into full extension and the patellar button was placed under compression, and the cement was allowed to cure. Once completed, the components were again taken through full range of motion and copious irrigation of the knee was carried out with another liter of normal saline. All components were inspected fully with full range of motion and varus and valgus stressing. There was no laxity noted and full extension was observed clinically. Primary closure was accomplished with #2 interrupted Vicryl stitch of the arthrotomy defect. This was oversewn with a #2 running Quill barbed stitch. The gravitational platelet system was then injected into the arthrotomy prior to closure. The subcutaneous layer was then closed with a running 0 barbed Monocryl stitch and skin closure accomplished with a running subcuticular 3-0 Monocryl barbed Quill stitch and augmented with cement on the skin. Tourniquet was lowered. Good spontaneous return of distal pulses was noted clinically and a sterile dressing was applied to the incision. The procedure was terminated without any complications. The patient was awakened in the operative suite and the patient was taken to the recovery room in stable condition. Job ID: [id number]
[2019-03-10] MEDS: Ondansetron PF 4 MG/2 ML Vial IVP PRN (15:42)
[2019-03-10] MEDS: Citalopram 20 MG TAB PO SCH (16:55)
[2019-03-10] MEDS: Amlodipine 5 MG TAB PO SCH (16:55)
[2019-03-10] MEDS: Senokot S 8.6-50 MG TAB PO SCH ×2 (16:56→20:48)
[2019-03-10] MEDS: Ferrous Gluconate 324 MG TAB PO SCH ×2 (16:56→20:48)
[2019-03-10] MEDS: Multivitamin W/ Minerals 1 TAB PO SCH (16:56)
[2019-03-10] MEDS: Meloxicam 15 MG TAB PO SCH (16:56)
[2019-03-10] MEDS: Metoprolol Tartrate 25 MG TAB PO SCH ×2 (16:56→20:48)
[2019-03-10] MEDS: Acetaminophen 325 MG TAB PO PRN (18:01)
[2019-03-10] MEDS: traMADol HCl 50 MG TAB PO PRN (18:01)
[2019-03-10] MEDS: Sodium Chloride 0.9% 1,000 ML IV SCH ×2 (18:03→18:04)
[2019-03-10] MEDS: Enoxaparin Sodium 30 MG/0.3 ML SYRINGE SC SCH (20:48)
[2019-03-10] MEDS: Ketorolac Tromethamine 30 MG/ML VIAL IVP PRN (21:46)
[2019-03-11] MEDS: Sodium Chloride 0.9% 1,000 ML IV SCH ×3 (04:15→22:30)
[2019-03-11 04:52] LABS: Hemoglobin 12.9 g/dL (12.0-16.0); Mean Corpuscular HGB CONC 34.9 g/dL (32.0-36.0); Mean Corpuscular Hemoglobin 32.8 pg (27.0-31.0); Mean Platelet Volume 7.1 fL (7.4-10.4); Platelet Count 246 thou/uL (130-400); RBC Distribution Width 11.3 % (11.5-14.5); Red Blood Cell (RBC) Count 3.92 mill/uL (4.20-5.40)
[2019-03-11] MEDS: Levothyroxine Sodium 125 MCG TAB PO SCH (05:16)
[2019-03-11] MEDS: traMADol HCl 50 MG TAB PO PRN (05:16)
[2019-03-11] MEDS: Ondansetron PF 4 MG/2 ML Vial IVP PRN (05:47)
[2019-03-11] MEDS ORDERED: Levothyroxine Sodium 100 MCG TAB PO SCH (06:00)
[2019-03-11] MEDS: Promethazine HCl 25 MG/ML VIAL IM PRN ×2 (06:09→10:13)
[2019-03-11] MEDS: Enoxaparin Sodium 30 MG/0.3 ML SYRINGE SC SCH ×2 (09:07→20:06)
[2019-03-11] MEDS: Citalopram 20 MG TAB PO SCH (09:08)
[2019-03-11] MEDS: Amlodipine 5 MG TAB PO SCH (09:08)
[2019-03-11] MEDS: Meloxicam 15 MG TAB PO SCH (09:08)
[2019-03-11] MEDS: Metoprolol Tartrate 25 MG TAB PO SCH ×2 (09:08→20:06)
[2019-03-11] MEDS: Senokot S 8.6-50 MG TAB PO SCH ×2 (09:08→20:06)
[2019-03-11] MEDS: Ferrous Gluconate 324 MG TAB PO SCH ×2 (09:08→20:06)
[2019-03-11] MEDS: Multivitamin W/ Minerals 1 TAB PO SCH (09:09)
[2019-03-11] MEDS: Ketorolac Tromethamine 30 MG/ML VIAL IVP PRN ×2 (10:13→19:18)
[2019-03-11] MEDS: Acetaminophen 325 MG TAB PO PRN (19:18)
[2019-03-12 04:33] LABS: Hemoglobin 11.7 g/dL (12.0-16.0); Mean Corpuscular HGB CONC 33.4 g/dL (32.0-36.0); Mean Corpuscular Hemoglobin 30.8 pg (27.0-31.0); Mean Corpuscular Volume 92.2 fL (78.0-98.0); Mean Platelet Volume 7.5 fL (7.4-10.4); Platelet Count 248 thou/uL (130-400); RBC Distribution Width 11.3 % (11.5-14.5); White Blood Cell (WBC) Count 11.7 thou/uL (4.8-10.8)
[2019-03-12] MEDS: Levothyroxine Sodium 125 MCG TAB PO SCH (05:25)
[2019-03-12] MEDS: Meloxicam 15 MG TAB PO SCH (08:01)
[2019-03-12] MEDS: Metoprolol Tartrate 25 MG TAB PO SCH ×2 (08:01→21:37)
[2019-03-12] MEDS: Amlodipine 5 MG TAB PO SCH (08:01)
[2019-03-12] MEDS: Citalopram 20 MG TAB PO SCH (08:01)
[2019-03-12] MEDS: Enoxaparin Sodium 30 MG/0.3 ML SYRINGE SC SCH ×2 (08:02→21:36)
[2019-03-12] MEDS: Senokot S 8.6-50 MG TAB PO SCH ×2 (08:02→21:37)
[2019-03-12] MEDS: Ferrous Gluconate 324 MG TAB PO SCH ×2 (08:02→21:38)
[2019-03-12] MEDS: Multivitamin W/ Minerals 1 TAB PO SCH (08:02)
--- NOTE | 2019-03-12 08:38 | PRG ---
DATE OF SERVICE: 03/12/2019 SUBJECTIVE: Love is a 78-year-old female, postop day 2 from a left total knee arthroplasty. She is doing relatively well. Her pain has been very well controlled and this morning she has already had a bowel movement. Yesterday, she ambulated 50 feet in the morning and 230 feet in the afternoon. She is doing very well and I believe plan is to transfer her to [facility] tomorrow. OBJECTIVE: VITAL SIGNS: Temperature is 98.5, pulse 72, blood pressure 138/74, respiratory rate is 16 and nonlabored, and O2 saturation 97% on room air. GENERAL: She is alert, oriented, responsive, appropriate, and grossly nonfocal. EXTREMITIES: Incision is clean and closed. No erythema. No strike through. She is neurovascularly intact in both lower extremities. IMPRESSION: A 78-year-old female, postop day 1, left total knee arthroplasty. PLAN: Continue current care. Transfer to [facility] in [place] tomorrow. Job ID: [id number]
[2019-03-12] MEDS: Ondansetron PF 4 MG/2 ML Vial IVP PRN (10:35)
[2019-03-12] MEDS: traMADol HCl 50 MG TAB PO PRN ×2 (11:41→21:39)
[2019-03-12] MEDS: Sodium Chloride 0.9% 1,000 ML IV SCH ×2 (13:09→20:02)
[2019-03-13] MEDS: Sodium Chloride 0.9% 1,000 ML IV SCH ×2 (02:36→17:46)
[2019-03-13] MEDS: traMADol HCl 50 MG TAB PO PRN ×2 (06:22→18:57)
[2019-03-13] MEDS: Levothyroxine Sodium 125 MCG TAB PO SCH (06:22)
[2019-03-13] MEDS: Meloxicam 15 MG TAB PO SCH (08:03)
[2019-03-13] MEDS: Citalopram 20 MG TAB PO SCH (08:03)
[2019-03-13] MEDS: Multivitamin W/ Minerals 1 TAB PO SCH (08:04)
[2019-03-13] MEDS: Amlodipine 5 MG TAB PO SCH (08:04)
[2019-03-13] MEDS: Ferrous Gluconate 324 MG TAB PO SCH ×2 (08:04→21:09)
[2019-03-13] MEDS: Senokot S 8.6-50 MG TAB PO SCH ×2 (08:04→21:10)
[2019-03-13] MEDS: Metoprolol Tartrate 25 MG TAB PO SCH ×2 (08:04→21:09)
[2019-03-13] MEDS: Enoxaparin Sodium 30 MG/0.3 ML SYRINGE SC SCH ×2 (08:05→21:10)
--- NOTE | 2019-03-13 13:40 | PRG ---
DATE OF SERVICE: 03/13/2019 SUBJECTIVE: Love is a 78-year-old female, postop day #3 from a left total knee arthroplasty. Her skilled stay has been declined and she is still not quite ready for home discharge in terms of independence or reliable accompaniment. She has been confused in the evening since then parts of the daytime, . She follows instructions very well, but has been somewhat confused and little unstable. She is ambulating 400 to 500 feet, but with standby assist. Therapy reports . OBJECTIVE: VITAL SIGNS: Temperature 98.4, pulse 82, blood pressure 115/67, respiratory rate 16 and nonlabored, O2 saturation is 96% on room air, and blood pressure is 116/65. GENERAL: She is alert, oriented, and appropriate with examiner, responsive, grossly nonfocal. EXTREMITIES: Incision is clean and clear. No erythema. No strike through. IMPRESSION: A 78-year-old female, postop day #3 left total knee arthroplasty, doing well. PLAN: We will keep her for one more night. Probable discharge to home on Ultram for pain and Lovenox 30 mg b.i.d. for DVT prophylaxis since she has a history of DVT. Job ID: [id number]
--- NOTE | 2019-03-13 16:44 | PDOC.HOSPP ---
- Subjective Encounter Date: 03/11/19 Encounter Time: 17:00 Subjective: Late Entry Note Patient reports she is doing well overall. No complaints. No pain. - Objective Vital Signs & Weight: Vital Signs (12 hours) Temp Pulse Resp BP BP BP Pulse Ox 03/13/19 15:25 98.3 F 77 14 135/67 98 03/13/19 11:22 98.2 F 71 16 116/65 98 03/13/19 08:04 82 115/67 03/13/19 08:00 96 03/13/19 07:44 98.4 F 82 16 155/66 H 96 Weight Admit Weight 185 lb Weight 185 lb I&O: 03/12/19 03/13/19 03/14/19 06:59 06:59 06:59 Intake Total 240 120 Balance 240 120 Result Diagrams: 03/12/19 03:59 Hospitalist ROS - Medication Medications: Active Medications Generic Name Dose Route Start Last Admin Trade Name Freq PRN Reason Stop Dose Admin Acetaminophen 650 mg 03/10/19 07:02 03/11/19 19:18 Tylenol PO 650 mg Q4H PRN Administration Headache/Fever or Pain Hydrocodone Bitart/Acetaminophen 1 tab 03/10/19 07:02 03/10/19 20:47 [place] 10/325 PO 1 tab Q4H PRN Administration Moderate Pain (4-6) Amlodipine Besylate 5 mg 03/10/19 09:00 03/13/19 08:04 Norvasc PO 5 mg DAILY PETER Administration Citalopram Hydrobromide 40 mg 03/10/19 09:00 03/13/19 08:03 Celexa PO 40 mg DAILY PETER Administration Enoxaparin Sodium 30 mg 03/10/19 21:00 03/13/19 08:05 Lovenox SC 30 mg 0900,2100 PETER Administration Fentanyl 50 mcg 03/10/19 07:12 03/10/19 16:15 Sublimaze SLOW IVP 50 mcg Q1H PRN Administration Breakthrough Pain Ferrous Gluconate 324 mg 03/10/19 09:00 03/13/19 08:04 Fergon PO 324 mg BID PETER Administration Sodium Chloride 1,000 mls @ 100 mls/hr 03/10/19 07:15 03/13/19 02:36 Normal Saline 0.9% IV Not Given .Q10H PETER Ropivacaine 250 ml/ Device 250 mls @ 0 mls/hr 03/10/19 07:11 03/11/19 09:07 NERVE BLCK 250 mls INF PETER Administration As Directed Iron/Minerals/Multivitamins 1 tab 03/10/19 09:00 03/13/19 08:04 Theragran M PO 1 tab DAILY PETER Administration Levothyroxine Sodium 125 mcg 03/11/19 06:00 03/13/19 06:22 Synthroid PO 125 mcg 0600 PETER Administration Meloxicam 15 mg 03/10/19 09:00 03/13/19 08:03 Mobic PO 15 mg DAILY PETER Administration Metoprolol Tartrate 25 mg 03/10/19 09:00 03/13/19 08:04 Lopressor PO 25 mg BID PETER Administration Ondansetron HCl 4 mg 03/10/19 07:11 03/12/19 10:35 Zofran IVP 4 mg Q6H PRN Administration Nausea/Vomiting Promethazine HCl 12.5 mg 03/10/19 07:02 03/11/19 10:13 Phenergan IM 12.5 mg Q4H PRN Administration Nausea/Vomiting Senna/Docusate Sodium 2 tab 03/10/19 09:00 03/13/19 08:04 Senokot S PO 2 tab BID PETER Administration Sodium Chloride 10 ml 03/10/19 07:02 03/12/19 10:35 Flush - Normal Saline IVF 10 ml PRN PRN Administration Saline Flush Tramadol HCl 50 mg 03/10/19 07:11 03/13/19 06:22 Ultram PO 50 mg Q6H PRN Administration Mild Pain (1-3) Tramadol HCl 100 mg 03/10/19 07:11 03/12/19 21:39 Ultram PO 100 mg Q6H PRN Administration Moderate Pain 4-6 - Exam General Appearance: NAD, awake alert Heart: RRR, no murmur, no gallops, no rubs, normal peripheral pulses Respiratory: CTAB, no wheezes, no rales, no ronchi, normal chest expansion, no tachypnea, normal percussion Gastrointestinal: soft, non-tender, non-distended, normal bowel sounds, no palpable masses, no hepatomegaly, no splenomegaly, no bruit Skin: normal turgor Musculoskeletal: normal tone Psychiatric: normal affect, normal behavior, A&O x 3 Hosp A/P (1) Status post total knee replacement, left Code(s): Z96.652 - PRESENCE OF LEFT ARTIFICIAL KNEE JOINT Status: Acute (2) Hx of radiofrequency ablation for complex left atrial arrhythmia Code(s): Z98.890 - OTHER SPECIFIED POSTPROCEDURAL STATES; Z86.79 - PERSONAL HISTORY OF OTHER DISEASES OF THE CIRCULATORY SYSTEM Status: Acute (3) GERD (gastroesophageal reflux disease) Code(s): K21.9 - GASTRO-ESOPHAGEAL REFLUX DISEASE WITHOUT ESOPHAGITIS Status: Chronic Qualifiers: Esophagitis presence: esophagitis presence not specified Qualified Code(s) : K21.9 - Gastro-esophageal reflux disease without esophagitis (4) HTN (hypertension) Code(s): I10 - ESSENTIAL (PRIMARY) HYPERTENSION Status: Chronic Qualifiers: Hypertension type: essential hypertension Qualified Code(s): I10 - Essential (primary) hypertension (5) Hypothyroidism Code(s): E03.9 - HYPOTHYROIDISM, UNSPECIFIED Status: Chronic Qualifiers: Hypothyroidism type: unspecified Qualified Code(s): E03.9 - Hypothyroidism , unspecified - Plan Doing very well. Ensuring patient is on her usual home medical regimen. Continue PT Ortho following post-op care.
--- NOTE | 2019-03-13 16:47 | PDOC.HOSPP ---
- Subjective Encounter Date: 03/13/19 Encounter Time: 16:45 Subjective: No complaints. Disappointed about the lack of acceptance for swing bed rehab. - Objective Vital Signs & Weight: Vital Signs (12 hours) Temp Pulse Resp BP BP BP Pulse Ox 03/13/19 15:25 98.3 F 77 14 135/67 98 03/13/19 11:22 98.2 F 71 16 116/65 98 03/13/19 08:04 82 115/67 03/13/19 08:00 96 03/13/19 07:44 98.4 F 82 16 155/66 H 96 Weight Admit Weight 185 lb Weight 185 lb I&O: 03/12/19 03/13/19 03/14/19 06:59 06:59 06:59 Intake Total 240 120 Balance 240 120 Result Diagrams: 03/12/19 03:59 Hospitalist ROS - Medication Medications: Active Medications Generic Name Dose Route Start Last Admin Trade Name Freq PRN Reason Stop Dose Admin Acetaminophen 650 mg 03/10/19 07:02 03/11/19 19:18 Tylenol PO 650 mg Q4H PRN Administration Headache/Fever or Pain Hydrocodone Bitart/Acetaminophen 1 tab 03/10/19 07:02 03/10/19 20:47 [place] 10/325 PO 1 tab Q4H PRN Administration Moderate Pain (4-6) Amlodipine Besylate 5 mg 03/10/19 09:00 03/13/19 08:04 Norvasc PO 5 mg DAILY PETER Administration Citalopram Hydrobromide 40 mg 03/10/19 09:00 03/13/19 08:03 Celexa PO 40 mg DAILY PETER Administration Enoxaparin Sodium 30 mg 03/10/19 21:00 03/13/19 08:05 Lovenox SC 30 mg 0900,2100 PETER Administration Fentanyl 50 mcg 03/10/19 07:12 03/10/19 16:15 Sublimaze SLOW IVP 50 mcg Q1H PRN Administration Breakthrough Pain Ferrous Gluconate 324 mg 03/10/19 09:00 03/13/19 08:04 Fergon PO 324 mg BID PETER Administration Sodium Chloride 1,000 mls @ 100 mls/hr 03/10/19 07:15 03/13/19 02:36 Normal Saline 0.9% IV Not Given .Q10H PETER Ropivacaine 250 ml/ Device 250 mls @ 0 mls/hr 03/10/19 07:11 03/11/19 09:07 NERVE BLCK 250 mls INF PETER Administration As Directed Iron/Minerals/Multivitamins 1 tab 03/10/19 09:00 03/13/19 08:04 Theragran M PO 1 tab DAILY PETER Administration Levothyroxine Sodium 125 mcg 03/11/19 06:00 03/13/19 06:22 Synthroid PO 125 mcg 0600 PETER Administration Meloxicam 15 mg 03/10/19 09:00 03/13/19 08:03 Mobic PO 15 mg DAILY PETER Administration Metoprolol Tartrate 25 mg 03/10/19 09:00 03/13/19 08:04 Lopressor PO 25 mg BID PETER Administration Ondansetron HCl 4 mg 03/10/19 07:11 03/12/19 10:35 Zofran IVP 4 mg Q6H PRN Administration Nausea/Vomiting Promethazine HCl 12.5 mg 03/10/19 07:02 03/11/19 10:13 Phenergan IM 12.5 mg Q4H PRN Administration Nausea/Vomiting Senna/Docusate Sodium 2 tab 03/10/19 09:00 03/13/19 08:04 Senokot S PO 2 tab BID PETER Administration Sodium Chloride 10 ml 03/10/19 07:02 03/12/19 10:35 Flush - Normal Saline IVF 10 ml PRN PRN Administration Saline Flush Tramadol HCl 50 mg 03/10/19 07:11 03/13/19 06:22 Ultram PO 50 mg Q6H PRN Administration Mild Pain (1-3) Tramadol HCl 100 mg 03/10/19 07:11 03/12/19 21:39 Ultram PO 100 mg Q6H PRN Administration Moderate Pain 4-6 - Exam General Appearance: NAD, awake alert Heart: RRR, no murmur, no gallops, no rubs, normal peripheral pulses Respiratory: CTAB, no wheezes, no rales, no ronchi, normal chest expansion, no tachypnea, normal percussion Gastrointestinal: soft, non-tender, non-distended, normal bowel sounds, no palpable masses, no hepatomegaly, no splenomegaly, no bruit Extremities: no cyanosis, no clubbing Extremities - other findings: Trace edema on left with minimal ecchymoses. Skin: normal turgor Musculoskeletal: normal tone Psychiatric: normal affect, normal behavior, A&O x 3 Hosp A/P (1) Status post total knee replacement, left Code(s): Z96.652 - PRESENCE OF LEFT ARTIFICIAL KNEE JOINT Status: Acute (2) Hx of radiofrequency ablation for complex left atrial arrhythmia Code(s): Z98.890 - OTHER SPECIFIED POSTPROCEDURAL STATES; Z86.79 - PERSONAL HISTORY OF OTHER DISEASES OF THE CIRCULATORY SYSTEM Status: Acute (3) GERD (gastroesophageal reflux disease) Code(s): K21.9 - GASTRO-ESOPHAGEAL REFLUX DISEASE WITHOUT ESOPHAGITIS Status: Chronic Qualifiers: Esophagitis presence: esophagitis presence not specified Qualified Code(s) : K21.9 - Gastro-esophageal reflux disease without esophagitis (4) HTN (hypertension) Code(s): I10 - ESSENTIAL (PRIMARY) HYPERTENSION Status: Chronic Qualifiers: Hypertension type: essential hypertension Qualified Code(s): I10 - Essential (primary) hypertension (5) Hypothyroidism Code(s): E03.9 - HYPOTHYROIDISM, UNSPECIFIED Status: Chronic Qualifiers: Hypothyroidism type: unspecified Qualified Code(s): E03.9 - Hypothyroidism , unspecified - Plan Doing very well. Ensuring patient is on her usual home medical regimen. Continue PT Ortho following post-op care. Anticipate discharge tomorrow. HH eval in progress.
[2019-03-14] MEDS: Sodium Chloride 0.9% 1,000 ML IV SCH ×2 (01:15→18:21)
[2019-03-14] MEDS: traMADol HCl 50 MG TAB PO PRN ×3 (05:58→20:35)
[2019-03-14] MEDS: Levothyroxine Sodium 125 MCG TAB PO SCH (05:58)
[2019-03-14] MEDS: Meloxicam 15 MG TAB PO SCH (08:37)
[2019-03-14] MEDS: Metoprolol Tartrate 25 MG TAB PO SCH ×2 (08:37→20:36)
[2019-03-14] MEDS: Multivitamin W/ Minerals 1 TAB PO SCH (08:37)
[2019-03-14] MEDS: Senokot S 8.6-50 MG TAB PO SCH ×2 (08:37→20:36)
[2019-03-14] MEDS: Ferrous Gluconate 324 MG TAB PO SCH ×2 (08:37→20:37)
[2019-03-14] MEDS: Citalopram 20 MG TAB PO SCH (08:38)
[2019-03-14] MEDS: Enoxaparin Sodium 30 MG/0.3 ML SYRINGE SC SCH ×2 (08:38→20:37)
[2019-03-14] MEDS: Amlodipine 5 MG TAB PO SCH (08:39)
[2019-03-14] MEDS: HYDROcodone/Acetaminophen 10/325 mg Tablet PO PRN ×2 (10:42→18:38)
--- NOTE | 2019-03-14 13:05 | PRG ---
DATE OF SERVICE: 03/14/2019 SUBJECTIVE: Love is postop day 4 from a left total knee arthroplasty. After thorough discussion with the daughter, the patient would like to be referred for an inpatient rehabilitation stay. OBJECTIVE: VITAL SIGNS: Temperature 98.3, pulse 71, respiratory rate 16, and blood pressure is 126/73. GENERAL: She is alert and oriented to person, place, time, and situation. Responsive and appropriate with examiner. Grossly nonfocal. EXTREMITIES: Incision is clean. No erythema. No strike through. She is neurovascularly intact in both lower extremities. LABORATORY DATA: Hemoglobin 11.7, hematocrit 35.0. IMPRESSION: A 78-year-old female, postop day 4 left total knee arthroplasty, doing well. PLAN: Continue current care. We will consult Case Management for inpatient rehabilitation screen. Job ID: [id number]
--- NOTE | 2019-03-14 13:08 | PDOC.HOSPP ---
- Subjective Encounter Date: 03/14/19 Encounter Time: 10:40 Subjective: no sob or chest pain, feels better daughter at bedside - Objective Vital Signs & Weight: Vital Signs (12 hours) Temp Pulse Resp BP Pulse Ox 03/14/19 12:18 98.3 F 71 16 126/73 93 L 03/14/19 08:39 77 03/14/19 07:27 98.3 F 77 16 157/83 H 96 03/14/19 02:57 98.3 F 83 16 154/72 H 98 Weight Admit Weight 185 lb Weight 185 lb I&O: 03/13/19 03/14/19 03/15/19 06:59 06:59 06:59 Intake Total 120 830 Balance 120 830 Result Diagrams: 03/12/19 03:59 Hospitalist ROS - Medication Medications: Active Medications Generic Name Dose Route Start Last Admin Trade Name Freq PRN Reason Stop Dose Admin Acetaminophen 650 mg 03/10/19 07:02 03/11/19 19:18 Tylenol PO 650 mg Q4H PRN Administration Headache/Fever or Pain Hydrocodone Bitart/Acetaminophen 1 tab 03/10/19 07:02 03/10/19 20:47 [place] 10/325 PO 1 tab Q4H PRN Administration Moderate Pain (4-6) Hydrocodone Bitart/Acetaminophen 2 tab 03/10/19 07:02 03/14/19 10:42 [place] 10/325 PO 2 tab Q4H PRN Administration Severe Pain (7-10) Amlodipine Besylate 5 mg 03/10/19 09:00 03/14/19 08:39 Norvasc PO 5 mg DAILY PETER Administration Citalopram Hydrobromide 40 mg 03/10/19 09:00 03/14/19 08:38 Celexa PO 40 mg DAILY PETER Administration Enoxaparin Sodium 30 mg 03/10/19 21:00 03/14/19 08:38 Lovenox SC 30 mg 0900,2100 PETER Administration Fentanyl 50 mcg 03/10/19 07:12 03/10/19 16:15 Sublimaze SLOW IVP 50 mcg Q1H PRN Administration Breakthrough Pain Ferrous Gluconate 324 mg 03/10/19 09:00 03/14/19 08:37 Fergon PO 324 mg BID PETER Administration Ropivacaine 250 ml/ Device 250 mls @ 0 mls/hr 03/10/19 07:11 03/11/19 09:07 NERVE BLCK 250 mls INF PETER Administration As Directed Iron/Minerals/Multivitamins 1 tab 03/10/19 09:00 03/14/19 08:37 Theragran M PO 1 tab DAILY PETER Administration Levothyroxine Sodium 125 mcg 03/11/19 06:00 03/14/19 05:58 Synthroid PO 125 mcg 0600 PETER Administration Meloxicam 15 mg 03/10/19 09:00 03/14/19 08:37 Mobic PO 15 mg DAILY PETER Administration Metoprolol Tartrate 25 mg 03/10/19 09:00 03/14/19 08:37 Lopressor PO 25 mg BID PETER Administration Ondansetron HCl 4 mg 03/10/19 07:11 03/12/19 10:35 Zofran IVP 4 mg Q6H PRN Administration Nausea/Vomiting Pantoprazole Sodium 40 mg 03/10/19 07:07 03/13/19 23:57 Protonix PO 40 mg DAILYPRN PRN Administration acid reflux Promethazine HCl 12.5 mg 03/10/19 07:02 03/11/19 10:13 Phenergan IM 12.5 mg Q4H PRN Administration Nausea/Vomiting Senna/Docusate Sodium 2 tab 03/10/19 09:00 03/14/19 08:37 Senokot S PO 2 tab BID PETER Administration Sodium Chloride 10 ml 03/10/19 07:02 03/12/19 10:35 Flush - Normal Saline IVF 10 ml PRN PRN Administration Saline Flush Tramadol HCl 50 mg 03/10/19 07:11 03/13/19 06:22 Ultram PO 50 mg Q6H PRN Administration Mild Pain (1-3) Tramadol HCl 100 mg 03/10/19 07:11 03/14/19 05:58 Ultram PO 100 mg Q6H PRN Administration Moderate Pain 4-6 - Exam General Appearance: NAD, awake alert Eye: PERRL, anicteric sclera ENT: no oropharyngeal lesions, moist mucosa Neck: supple, no JVD Heart: RRR, no murmur, no gallops Respiratory: no wheezes, no rales Gastrointestinal: soft, non-tender, non-distended, normal bowel sounds Extremities: no cyanosis, no edema Neurological: cranial nerve grossly intact, no focal deficits Psychiatric: A&O x 3 Hosp A/P (1) Status post total knee replacement, left Code(s): Z96.652 - PRESENCE OF LEFT ARTIFICIAL KNEE JOINT Status: Acute (2) HTN (hypertension) Code(s): I10 - ESSENTIAL (PRIMARY) HYPERTENSION Status: Chronic Qualifiers: Hypertension type: essential hypertension Qualified Code(s): I10 - Essential (primary) hypertension (3) Hypothyroidism Code(s): E03.9 - HYPOTHYROIDISM, UNSPECIFIED Status: Chronic Qualifiers: Hypothyroidism type: unspecified Qualified Code(s): E03.9 - Hypothyroidism , unspecified (4) GERD (gastroesophageal reflux disease) Code(s): K21.9 - GASTRO-ESOPHAGEAL REFLUX DISEASE WITHOUT ESOPHAGITIS Status: Chronic Qualifiers: Esophagitis presence: esophagitis presence not specified Qualified Code(s) : K21.9 - Gastro-esophageal reflux disease without esophagitis - Plan continue lovenox 30mg bid for dvt prophylaxis on protonix, citalopram, synthroid, captopril and lopressor ultram, norco prn family are requesting for rehab eval, swing bed was declined by her insurance dc plan per ortho adv.
[2019-03-14] MEDS: Ondansetron PF 4 MG/2 ML Vial IVP PRN (23:30)
[2019-03-15] MEDS: Levothyroxine Sodium 125 MCG TAB PO SCH (05:32)
[2019-03-15] MEDS: traMADol HCl 50 MG TAB PO PRN ×2 (05:33→20:00)
[2019-03-15] MEDS: Citalopram 20 MG TAB PO SCH (09:25)
[2019-03-15] MEDS: Meloxicam 15 MG TAB PO SCH (09:25)
[2019-03-15] MEDS: Senokot S 8.6-50 MG TAB PO SCH ×2 (09:25→22:00)
[2019-03-15] MEDS: Metoprolol Tartrate 25 MG TAB PO SCH ×2 (09:25→22:01)
[2019-03-15] MEDS: Enoxaparin Sodium 30 MG/0.3 ML SYRINGE SC SCH ×2 (09:26→22:01)
[2019-03-15] MEDS: Multivitamin W/ Minerals 1 TAB PO SCH (09:26)
[2019-03-15] MEDS: Amlodipine 5 MG TAB PO SCH (09:26)
[2019-03-15] MEDS: Ferrous Gluconate 324 MG TAB PO SCH ×2 (09:27→22:01)
--- NOTE | 2019-03-15 11:30 | PRG ---
DATE OF SERVICE: 03/15/2019 SUBJECTIVE: Love is a 78-year-old female, postop day 5 from left total knee arthroplasty. She has very little complaints and is ambulating distances over 300 to 400 feet. OBJECTIVE: VITAL SIGNS: Temperature 98.3; pulse 77; respiratory rate 16, unlabored; O2 saturations 98% on room air; and blood pressure is 166/72. NEUROLOGIC: She is alert and oriented to person, place, time, and situation, responsive, appropriate with examiner. Grossly nonfocal. Incision is clean and closed. No malrotation. No strike through and no leg length discrepancy is identified. She is neurovascularly intact in both lower extremities. IMPRESSION: 1. A 78-year-old female, postop day 5, left total knee arthroplasty, doing well. 2. Confusion. PLAN: Continue current care. We will await disposition on inpatient rehabilitation. Job ID: [id number]
--- NOTE | 2019-03-15 11:37 | PDOC.HOSPP ---
- Subjective Encounter Date: 03/15/19 Encounter Time: 09:40 Subjective: no sob, pain is better is working with PT actively, currently sitting in chair - Objective Vital Signs & Weight: Vital Signs (12 hours) Temp Pulse Resp BP BP BP Pulse Ox 03/15/19 09:26 77 166/72 H 03/15/19 08:57 98 03/15/19 07:32 98.3 F 77 16 166/72 H 98 03/15/19 07:22 98.3 F 77 16 166/72 H 98 Weight Admit Weight 185 lb Weight 185 lb I&O: 03/14/19 03/15/19 03/16/19 06:59 06:59 06:59 Intake Total 830 240 Balance 830 240 Result Diagrams: 03/12/19 03:59 Hospitalist ROS - Medication Medications: Active Medications Generic Name Dose Route Start Last Admin Trade Name Freq PRN Reason Stop Dose Admin Acetaminophen 650 mg 03/10/19 07:02 03/11/19 19:18 Tylenol PO 650 mg Q4H PRN Administration Headache/Fever or Pain Hydrocodone Bitart/Acetaminophen 1 tab 03/10/19 07:02 03/10/19 20:47 [place]varado 10/325 PO 1 tab Q4H PRN Administration Moderate Pain (4-6) Hydrocodone Bitart/Acetaminophen 2 tab 03/10/19 07:02 03/14/19 18:38 [place]ado 10/325 PO 2 tab Q4H PRN Administration Severe Pain (7-10) Amlodipine Besylate 5 mg 03/10/19 09:00 03/15/19 09:26 Norvasc PO 5 mg DAILY PETER Administration Citalopram Hydrobromide 40 mg 03/10/19 09:00 03/15/19 09:25 Celexa PO 40 mg DAILY PETER Administration Enoxaparin Sodium 30 mg 03/10/19 21:00 03/15/19 09:26 Lovenox SC 30 mg 0900,2100 PETER Administration Fentanyl 50 mcg 03/10/19 07:12 03/10/19 16:15 Sublimaze SLOW IVP 50 mcg Q1H PRN Administration Breakthrough Pain Ferrous Gluconate 324 mg 03/10/19 09:00 03/15/19 09:27 Fergon PO 324 mg BID PETER Administration Ropivacaine 250 ml/ Device 250 mls @ 0 mls/hr 03/10/19 07:11 03/11/19 09:07 NERVE BLCK 250 mls INF PETER Administration As Directed Iron/Minerals/Multivitamins 1 tab 03/10/19 09:00 03/15/19 09:26 Theragran M PO 1 tab DAILY PETER Administration Levothyroxine Sodium 125 mcg 03/11/19 06:00 03/15/19 05:32 Synthroid PO 125 mcg 0600 PETER Administration Meloxicam 15 mg 03/10/19 09:00 03/15/19 09:25 Mobic PO 15 mg DAILY PETER Administration Metoprolol Tartrate 25 mg 03/10/19 09:00 03/15/19 09:25 Lopressor PO 25 mg BID PETER Administration Ondansetron HCl 4 mg 03/10/19 07:11 03/14/19 23:30 Zofran IVP 4 mg Q6H PRN Administration Nausea/Vomiting Pantoprazole Sodium 40 mg 03/10/19 07:07 03/14/19 20:34 Protonix PO 40 mg DAILYPRN PRN Administration acid reflux Promethazine HCl 12.5 mg 03/10/19 07:02 03/11/19 10:13 Phenergan IM 12.5 mg Q4H PRN Administration Nausea/Vomiting Senna/Docusate Sodium 2 tab 03/10/19 09:00 03/15/19 09:25 Senokot S PO 2 tab BID PETER Administration Sodium Chloride 10 ml 03/10/19 07:02 03/12/19 10:35 Flush - Normal Saline IVF 10 ml PRN PRN Administration Saline Flush Tramadol HCl 50 mg 03/10/19 07:11 03/13/19 06:22 Ultram PO 50 mg Q6H PRN Administration Mild Pain (1-3) Tramadol HCl 100 mg 03/10/19 07:11 03/15/19 05:33 Ultram PO 100 mg Q6H PRN Administration Moderate Pain 4-6 - Exam General Appearance: NAD, awake alert Eye: PERRL, anicteric sclera ENT: no oropharyngeal lesions, moist mucosa Neck: supple, no JVD Heart: RRR, no murmur Respiratory: no wheezes, no rales Gastrointestinal: soft, non-tender, non-distended, normal bowel sounds Extremities: no cyanosis, no edema Neurological: cranial nerve grossly intact, no focal deficits Psychiatric: normal affect, A&O x 3 Hosp A/P (1) Status post total knee replacement, left Code(s): Z96.652 - PRESENCE OF LEFT ARTIFICIAL KNEE JOINT Status: Acute (2) HTN (hypertension) Code(s): I10 - ESSENTIAL (PRIMARY) HYPERTENSION Status: Chronic Qualifiers: Hypertension type: essential hypertension Qualified Code(s): I10 - Essential (primary) hypertension (3) Hypothyroidism Code(s): E03.9 - HYPOTHYROIDISM, UNSPECIFIED Status: Chronic Qualifiers: Hypothyroidism type: unspecified Qualified Code(s): E03.9 - Hypothyroidism , unspecified (4) GERD (gastroesophageal reflux disease) Code(s): K21.9 - GASTRO-ESOPHAGEAL REFLUX DISEASE WITHOUT ESOPHAGITIS Status: Chronic Qualifiers: Esophagitis presence: esophagitis presence not specified Qualified Code(s) : K21.9 - Gastro-esophageal reflux disease without esophagitis - Plan continue lovenox 30mg bid for dvt prophylaxis on protonix, citalopram, synthroid, captopril and lopressor ultram, norco prn rehab eval pending dc plan per ortho adv.
[2019-03-16] MEDS: traMADol HCl 50 MG TAB PO PRN ×2 (03:33→18:24)
[2019-03-16] MEDS: Levothyroxine Sodium 125 MCG TAB PO SCH (05:34)
[2019-03-16] MEDS: Senokot S 8.6-50 MG TAB PO SCH (07:53)
[2019-03-16] MEDS: Ferrous Gluconate 324 MG TAB PO SCH (07:53)
[2019-03-16] MEDS: Meloxicam 15 MG TAB PO SCH (07:53)
[2019-03-16] MEDS: Amlodipine 5 MG TAB PO SCH (07:54)
[2019-03-16] MEDS: Citalopram 20 MG TAB PO SCH (07:54)
[2019-03-16] MEDS: Multivitamin W/ Minerals 1 TAB PO SCH (07:54)
[2019-03-16] MEDS: Enoxaparin Sodium 30 MG/0.3 ML SYRINGE SC SCH (07:54)
[2019-03-16] MEDS: Metoprolol Tartrate 25 MG TAB PO SCH (07:54)
[2019-03-16 16:49] VITALS: BP 149/77; TEMP 98.4
== END 2019-03-16 18:37 | DRG 470 ==
LOC: SDC 05:33 → SJJU 10:01
PROVIDERS: ADMIT Orthopaedic Surgery; ATTEND Orthopaedic Surgery
PROC: 0SRD0J9 Replacement of Left Knee Joint with Synthetic Substitute, Cemented, Open Approach (ICD-10-PCS; principal; 2019-03-10)
PROC: 8E0YXBZ Computer Assisted Procedure of Lower Extremity (ICD-10-PCS; 2019-03-10)
DX: M17.12 Unilateral primary osteoarthritis, left knee (principal); M25.462 Effusion, left knee; M67.262 Synovial hypertrophy, not elsewhere classified, left lower leg; K21.9 Gastro-esophageal reflux disease without esophagitis; E03.9 Hypothyroidism, unspecified; R41.0 Disorientation, unspecified; Z90.49 Acquired absence of other specified parts of digestive tract; Z90.710 Acquired absence of both cervix and uterus; Z86.79 Personal history of other diseases of the circulatory system
CPT/HCPCS: 36415; 85027; C1713; C1776; J0690; J1650; J1885; J2001; J2250; J2405; J2550; J2704; J2795; J3010; J3370; J3490; J7050

== ENCOUNTER 2019-10-29 08:19 | Day surgery (SDC) | payer MEDICARE, BC ==
[2019-10-28 09:09] VITALS: BMI 26.4
[~2019-10-29 08:19] MED LIST changes: +Fluorouracil 100 MG, Enoxaparin Sodium 25 MG, EPINEPHrine 0.3 MG in Ophthalmic Irrigati... IRR SCH; -ISOVUE-370 76%-LOCM 1 ML ONE
[2019-10-29] MEDS ORDERED: Phenylephrine 2.5% Ophth Soln 5 ML BOT ONE (10:31)
[2019-10-29] MEDS ORDERED: Cyclopentolate 1% Opth Drop 2 ML BOT ONE (10:31)
[2019-10-29] MEDS ORDERED: Midazolam HCl 2 mg/2 ml Vial ONE (11:46)
[2019-10-29] MEDS ORDERED: PROPOFOL 20 ML ONE (11:46)
[2019-10-29] MEDS ORDERED: CEFAZOLIN 1 GM VIAL ONE (14:36)
[2019-10-29] MEDS ORDERED: Bupivacaine PF 0.75% SDV 10 ML ONE (14:36)
[2019-10-29] MEDS ORDERED: Lidocaine 4% PF 5 ML AMP ONE (14:36)
[2019-10-29] MEDS ORDERED: Enoxaparin Sodium 30 MG/0.3 ML SYRINGE ONE (14:36)
[2019-10-29] MEDS ORDERED: Lidocaine 1% PF 5 ML VIAL ONE (14:36)
[2019-10-29] MEDS ORDERED: Tobramycin/Dexamethasone Ophth Oint 3.5 GM TUBE ONE (14:36)
[2019-10-29] MEDS ORDERED: Triamcinolone 40 MG/ML VIAL ONE (14:36)
--- NOTE | 2019-10-29 23:33 | OP ---
DATE OF PROCEDURE: 10/29/2019 PREOPERATIVE DIAGNOSIS: Rhegmatogenous retinal detachment, left eye. POSTOPERATIVE DIAGNOSIS: Rhegmatogenous retinal detachment, left eye. PROCEDURES PERFORMED: Pars plana vitrectomy and retinal detachment repair, left eye. ANESTHESIA: Local monitored anesthesia care. DESCRIPTION OF PROCEDURE: The patient was identified in the preoperative holding area. Appropriate informed consent for the planned surgical procedure on the left eye had been obtained. The patient was transported to the operative suite. Appropriate cardiopulmonary monitoring was established. Local anesthesia was obtained using retrobulbar modified Van Lint lid block using 50:50 mixture of 4% lidocaine and 0.75% bupivacaine. The patient was prepped and draped in usual sterile manner for ophthalmic surgery, left eye. Lid speculum was placed in the left eye. A 25-gauge trocar was placed in the conjunctiva and sclera superotemporally, inferotemporally, and supranasally. Infusion line was placed inferotemporally. Light pipe vitreous cutter inserted into the eye. Core vitrectomy was performed after a bullous retinal detachment was noted and the cystic duct was noted along the 2 o'clock meridian with an adjacent horseshoe tear. Vitreous was dissected away from the retina 360 degrees. Posterior drained retinotomy was created and the retina was flattened. Under air, superior laser was placed using Endolaser delivery device. Ten minutes was allowed for fluid to drain posteriorly. A 28% sulfur hexafluoride gas was infused into the eye. Trocar was removed. Superior sclerotomy was suture closed. Retrobulbar Kenalog sequential Ancef was placed. Antibiotic ointment was placed. Eye was patched and shielded. The patient was taken to postop recovery unit in good condition, having suffered no immediate perioperative complications. The patient was instructed to keep patch shield on and advised to position left side down. The patient was advised to call for pain not relieved by Tylenol. Followup appointment with Dr. Higgins. Job ID: [id number]
== END 2019-10-29 13:20 | disposition home or self-care (01) ==
LOC: SDC 08:19
PROVIDERS: ATTEND Ophthalmology Retina Specialist
PROC: 08T53ZZ Resection of Left Vitreous, Percutaneous Approach (ICD-10-PCS; principal; 2019-10-29)
PROC: 08QF3ZZ Repair Left Retina, Percutaneous Approach (ICD-10-PCS; 2019-10-29)
DX: H33.022 Retinal detachment with multiple breaks, left eye (principal); I10 Essential (primary) hypertension; I48.91 Unspecified atrial fibrillation; E03.9 Hypothyroidism, unspecified; K21.9 Gastro-esophageal reflux disease without esophagitis; M19.90 Unspecified osteoarthritis, unspecified site; F32.9 Major depressive disorder, single episode, unspecified; F41.9 Anxiety disorder, unspecified; Z79.1 Long term (current) use of non-steroidal anti-inflammatories (NSAID); Z79.899 Other long term (current) drug therapy
CPT/HCPCS: 67025; J0171; J1650; J2250; J2704; J9190

== ENCOUNTER 2019-12-28 14:24 | Outpatient (CLI) | payer MEDICARE, BC, OTHER ==
[2019-12-29 12:15] LABS: SARS-CoV-2 MS2 Positive; SARS-CoV-2 N Gene Negative; SARS-CoV-2 S Gene Negative; SARS-CoV-2 by NAA Not Detected (NotDetected); SARS-CoV-2 orf1ab Negative
== END 2019-12-28 14:25 | disposition home or self-care (01) ==
LOC: LABBT 14:24
PROVIDERS: ATTEND Ophthalmology Retina Specialist
DX: Z01.812 Encounter for preprocedural laboratory examination (principal); Z11.59 Encounter for screening for other viral diseases; H35.342 Macular cyst, hole, or pseudohole, left eye
CPT/HCPCS: 87635; U0003

== ENCOUNTER 2019-12-31 07:08 | Day surgery (SDC) | payer MEDICARE, BC ==
[2019-12-29 13:48] VITALS: BMI 25.8
[~2019-12-31 07:08] MED LIST changes: +Acetaminophen 500 MG TAB PO PRN; +Cyclopentolate 1% Opth Drop 2 ML BOT FS SCH; +Fentanyl 100 MCG/2 ML VIAL ONE; +Midazolam HCl 2 mg/2 ml Vial ONE; +Phenylephrine 2.5% Ophth Soln 5 ML BOT FS SCH
[2019-12-31] MEDS ORDERED: Phenylephrine 2.5% Ophth Soln 5 ML BOT ONE (07:43)
[2019-12-31] MEDS ORDERED: Cyclopentolate 1% Opth Drop 2 ML BOT ONE (07:43)
[2019-12-31] MEDS ORDERED: Lidocaine 4% PF 5 ML AMP ONE (10:03)
[2019-12-31] MEDS ORDERED: Triamcinolone 40 MG/ML VIAL ONE (10:03)
[2019-12-31] MEDS ORDERED: CEFAZOLIN 1 GM VIAL ONE (10:03)
[2019-12-31] MEDS ORDERED: Maxitrol 0.1% Opth Oint 3.5 GM TUBE ONE (10:03)
[2019-12-31] MEDS ORDERED: PROPOFOL 200 MG/20 ML VIAL ONE (10:03)
[2019-12-31] MEDS ORDERED: Indocyanine Green 25 MG/10 ML VIAL ONE (10:03)
[2019-12-31] MEDS ORDERED: Bupivacaine PF 0.75% SDV 10 ML ONE (10:03)
[2019-12-31] MEDS ORDERED: Lidocaine 1% PF 5 ML VIAL ONE (10:03)
[2019-12-31] MEDS ORDERED: Enoxaparin Sodium 30 MG/0.3 ML SYRINGE ONE (10:03)
--- NOTE | 2020-01-01 13:22 | OP ---
DATE OF PROCEDURE: 12/31/2019 PREOPERATIVE DIAGNOSIS: Macular hole, left eye. POSTOPERATIVE DIAGNOSIS: Macular hole, left eye. PROCEDURES PERFORMED: Pars plana vitrectomy and internal limiting membrane peel, left eye. ANESTHESIA: Local with monitored anesthesia care. DESCRIPTION OF PROCEDURE: The patient was identified in the preoperative holding area. Appropriate informed consent for the planned surgical procedure on the left eye had been obtained. The patient was transported to the operative suite, where appropriate cardiopulmonary monitoring established. Local anesthesia obtained using retrobulbar modified Van Lint lid block using 50:50 mixture of 4% lidocaine 0.75% bupivacaine. The patient was prepped and draped in usual sterile manner for ophthalmic surgery in the left eye. Lid speculum was placed in the left eye. A 25-gauge trocar was placed in the conjunctiva and sclera superotemporally, inferotemporally, and supranasally. Infusion line was placed inferotemporally. Light pipe and vitreous cutter inserted into the eye. Core vitrectomy was performed. Indocyanine green dye was infused on the posterior pole x1, identifying the internal limiting membrane. This was elevated using membrane scraper and peeled across the macula using end gripping forceps. No further holes, breaks, or tears were identified. A 15% propane gas was infused into the eye. Superior sclerotomy was suture closed with 6-0 plain gut suture. Retrobulbar Kenalog and subconjunctival Ancef were placed. Antibiotic ointment was placed. The eye was patched and shielded. The patient was taken to postop recovery unit in good condition, having suffered no immediate perioperative complications. The patient was instructed to keep patch shield on, avoid flat and back positioning. Followup appointment with Dr. Higgins. Job ID: [id number]
== END 2019-12-31 10:30 | disposition home or self-care (01) ==
LOC: SDC 07:08
PROVIDERS: ATTEND Ophthalmology Retina Specialist
PROC: 08T53ZZ Resection of Left Vitreous, Percutaneous Approach (ICD-10-PCS; principal; 2019-12-31)
PROC: 08NF3ZZ Release Left Retina, Percutaneous Approach (ICD-10-PCS; 2019-12-31)
DX: H35.342 Macular cyst, hole, or pseudohole, left eye (principal); I10 Essential (primary) hypertension; I48.91 Unspecified atrial fibrillation; E03.9 Hypothyroidism, unspecified; K21.9 Gastro-esophageal reflux disease without esophagitis; M19.90 Unspecified osteoarthritis, unspecified site; F41.9 Anxiety disorder, unspecified; F32.9 Major depressive disorder, single episode, unspecified; Z79.899 Other long term (current) drug therapy
CPT/HCPCS: 67025; J0171; J0690; J1650; J2001; J2250; J2704; J3010; J3301; J3490; J9190

== ENCOUNTER 2021-03-31 14:45 | Inpatient (IN) | payer MEDICARE, BC ==
[2021-04-04] MEDS ORDERED: Vancomycin 1 GM in Premix Bag 1 BAG IVPB SCH (02:00)
[2021-04-04] MEDS ORDERED: Heparin 1,000 UNITS/ML VIAL ONE (10:16)
[2021-04-04] MEDS ORDERED: Midazolam HCl 2 mg/2 ml Vial ONE (11:14)
[2021-04-04] MEDS ORDERED: Fentanyl 100 MCG/2 ML VIAL ONE ×5 (11:14→17:26)
[2021-04-04] MEDS ORDERED: Tobramycin Sulfate 1.2 GM VIAL ONE (12:41)
[2021-04-04] MEDS ORDERED: traMADol HCl 50 MG TAB PO PRN (13:00)
[2021-04-04] MEDS ORDERED: Promethazine HCl 25 MG/ML VIAL IM PRN ×3 (13:00→16:38)
[2021-04-04] MEDS ORDERED: Zolpidem Tartrate 5 MG TAB PO PRN ×2 (13:00→14:10)
[2021-04-04] MEDS ORDERED: Ondansetron PF 4 MG/2 ML Vial IVP PRN (13:00)
[2021-04-04] MEDS ORDERED: Ropivacaine 0.2% 550 ML 550 ML NERVE BLCK SCH (13:00)
[2021-04-04] MEDS ORDERED: Ketorolac Tromethamine 30 MG/ML VIAL IVP PRN (13:00)
[2021-04-04] MEDS ORDERED: Fentanyl 100 MCG/2 ML VIAL IV PRN (13:04)
[2021-04-04] MEDS ORDERED: Bupivacaine HCl 0.5%/Epinephrine 1:200,000/PF 30 ml Vial ONE (13:57)
[2021-04-04] MEDS ORDERED: Ondansetron PF 4 MG/2 ML Vial ONE (13:57)
[2021-04-04] MEDS ORDERED: Lidocaine 1% PF 5 ML VIAL ONE (13:57)
[2021-04-04] MEDS ORDERED: Dexamethasone 20 MG/5 ML VIAL ONE (13:57)
[2021-04-04] MEDS ORDERED: PROPOFOL 200 MG/20 ML VIAL ONE (13:57)
[2021-04-04] MEDS ORDERED: Acetaminophen 325 MG TAB PO PRN (14:10)
[2021-04-04] MEDS ORDERED: Triamterene/Hydrochlorothiazide 37.5 mg/25 mg Tablet PO SCH (15:15)
[2021-04-04] MEDS ORDERED: Ondansetron HCl/PF 4 MG/2 ML Vial IVP PRN (16:38)
[2021-04-04] MEDS ORDERED: Promethazine HCl 25 MG/ML VIAL IVPB PRN (16:38)
[2021-04-04] MEDS ORDERED: HYDROmorphone 2 MG/ML VIAL SLOW IVP PRN (16:38)
[2021-04-04] MEDS: ceFAZolin Sodium/D5W 2 GM in Premix Bag 1 BAG IVPB SCH ×2 (20:18→23:24)
[2021-04-04] MEDS: Aspirin 81 mg Enteric Coated Tablet PO SCH (21:41)
[2021-04-04] MEDS: HYDROcodone/Acetaminophen 10/325 mg Tablet PO PRN (21:41)
[2021-04-04] MEDS: Metoprolol Tartrate 25 MG TAB PO SCH (21:41)
[2021-04-04] MEDS: Ondansetron PF 4 MG/2 ML Vial IVP PRN (21:42)
[2021-04-04] MEDS: Sodium Chloride 0.9% 1,000 ML IV SCH (21:45)
[2021-04-05] MEDS ORDERED: Vancomycin 1 GM in Premix Bag 1 BAG IVPB SCH (02:00)
[2021-04-05] MEDS: Levothyroxine Sodium 125 MCG TAB PO SCH (05:39)
[2021-04-05 05:52] LABS: Hemoglobin 12.2 g/dL (12.0-16.0); Mean Corpuscular HGB CONC 34.2 g/dL (32.0-36.0); Mean Corpuscular Hemoglobin 32.4 pg (27.0-31.0); Mean Corpuscular Volume 94.6 fL (78.0-98.0); Mean Platelet Volume 7.2 fL (7.4-10.4); Platelet Count 273 thou/uL (130-400); RBC Distribution Width 11.8 % (11.5-14.5); Red Blood Cell (RBC) Count 3.77 mill/uL (4.20-5.40); White Blood Cell (WBC) Count 10.3 thou/uL (4.8-10.8)
[2021-04-05] MEDS: Sodium Chloride 0.9% 1,000 ML IV SCH ×3 (07:24→22:30)
[2021-04-05] MEDS: Aspirin 81 mg Enteric Coated Tablet PO SCH ×2 (09:09→20:54)
[2021-04-05] MEDS: Metoprolol Tartrate 25 MG TAB PO SCH ×2 (09:09→20:54)
[2021-04-05] MEDS: Ferrous Gluconate 324 MG TAB PO SCH ×2 (09:09→17:20)
[2021-04-05] MEDS: Multivitamin W/ Minerals 1 TAB PO SCH (09:09)
[2021-04-05] MEDS: Senokot S 8.6-50 MG TAB PO SCH ×2 (09:09→20:55)
[2021-04-05] MEDS: Ondansetron PF 4 MG/2 ML Vial IVP PRN (09:49)
[2021-04-05] MEDS: HYDROcodone/Acetaminophen 10/325 mg Tablet PO PRN ×2 (18:35→23:26)
[2021-04-06] MEDS: Sodium Chloride 0.9% 1,000 ML IV SCH ×2 (04:16→16:09)
[2021-04-06] MEDS: Levothyroxine Sodium 125 MCG TAB PO SCH (05:37)
[2021-04-06] MEDS: HYDROcodone/Acetaminophen 10/325 mg Tablet PO PRN (05:59)
[2021-04-06] MEDS ORDERED: CEFAZOLIN 2 GM, Admixture Fee 1 EACH in Sodium Chloride 0.9% 100 ML IVPB SCH (08:00)
[2021-04-06] MEDS ORDERED: CEFAZOLIN 2 GM in Premix Bag 1 BAG IVPB SCH (08:00)
[2021-04-06] MEDS: Multivitamin W/ Minerals 1 TAB PO SCH (08:42)
[2021-04-06] MEDS: Senokot S 8.6-50 MG TAB PO SCH ×2 (08:43→20:43)
[2021-04-06] MEDS: Triamterene/Hydrochlorothiazide 37.5 mg/25 mg Tablet PO SCH (08:43)
[2021-04-06] MEDS: Ferrous Gluconate 324 MG TAB PO SCH ×2 (08:43→16:23)
[2021-04-06] MEDS: Aspirin 81 mg Enteric Coated Tablet PO SCH ×2 (08:43→20:43)
[2021-04-06] MEDS: Metoprolol Tartrate 25 MG TAB PO SCH ×2 (08:43→20:42)
[2021-04-06] MEDS: Vancomycin 1 GM in Premix Bag 1 BAG IVPB SCH (08:44)
[2021-04-06] MEDS ORDERED: VANCOMYCIN 1.25 GM/250 ML BAG 1.25 GM in Premix Bag 1 BAG IVPB SCH (09:00)
[2021-04-06] MEDS: Ondansetron PF 4 MG/2 ML Vial IVP PRN (10:06)
[2021-04-06] MEDS: cefTRIAXone\\ROCEPHIN 2 GM in Sodium Chloride 0.9% 100 ML IVPB SCH (13:38)
[2021-04-06] MEDS: Rifampin 300 MG CAP PO SCH (20:42)
[2021-04-07] MEDS: Ondansetron PF 4 MG/2 ML Vial IVP PRN ×2 (00:56→09:12)
[2021-04-07] MEDS: Sodium Chloride 0.9% 1,000 ML IV SCH ×3 (01:33→21:29)
[2021-04-07] MEDS: Levothyroxine Sodium 125 MCG TAB PO SCH (06:18)
[2021-04-07] MEDS ORDERED: Levothyroxine Sodium 125 MCG TAB PO SCH (06:30)
[2021-04-07] MEDS: Multivitamin W/ Minerals 1 TAB PO SCH (09:04)
[2021-04-07] MEDS: Senokot S 8.6-50 MG TAB PO SCH ×2 (09:04→20:17)
[2021-04-07] MEDS: Aspirin 81 mg Enteric Coated Tablet PO SCH ×2 (09:04→20:17)
[2021-04-07] MEDS: Vancomycin 1 GM in Premix Bag 1 BAG IVPB SCH (09:05)
[2021-04-07] MEDS: Ferrous Gluconate 324 MG TAB PO SCH ×2 (09:05→16:04)
[2021-04-07] MEDS: Rifampin 300 MG CAP PO SCH ×2 (09:05→21:24)
[2021-04-07] MEDS: Metoprolol Tartrate 25 MG TAB PO SCH ×2 (09:05→20:17)
[2021-04-07] MEDS: Scopolamine 1.5 mg/72 hour Patch TOP SCH (13:37)
[2021-04-07] MEDS: cefTRIAXone\\ROCEPHIN 2 GM in Sodium Chloride 0.9% 100 ML IVPB SCH (13:41)
[2021-04-07] MEDS: HYDROcodone/Acetaminophen 10/325 mg Tablet PO PRN (20:18)
[2021-04-07 21:36] VITALS: BMI 26.6
[2021-04-08] MEDS: Levothyroxine Sodium 125 MCG TAB PO SCH (04:23)
[2021-04-08] MEDS: Aspirin 81 mg Enteric Coated Tablet PO SCH ×2 (07:57→20:13)
[2021-04-08] MEDS: Triamterene/Hydrochlorothiazide 37.5 mg/25 mg Tablet PO SCH (07:57)
[2021-04-08] MEDS: HYDROcodone/Acetaminophen 10/325 mg Tablet PO PRN ×2 (07:58→23:30)
[2021-04-08] MEDS: Metoprolol Tartrate 25 MG TAB PO SCH ×2 (07:58→20:13)
[2021-04-08] MEDS: Ferrous Gluconate 324 MG TAB PO SCH ×2 (07:58→16:01)
[2021-04-08] MEDS: Multivitamin W/ Minerals 1 TAB PO SCH (07:58)
[2021-04-08] MEDS: Senokot S 8.6-50 MG TAB PO SCH ×2 (07:58→20:14)
[2021-04-08] MEDS: Sodium Chloride 0.9% 1,000 ML IV SCH ×2 (07:59→13:59)
[2021-04-08 09:52] LABS: Vancomycin, Trough 7.6 ug/mL
[2021-04-08] MEDS: Ondansetron PF 4 MG/2 ML Vial IVP PRN (10:03)
[2021-04-08] MEDS: Rifampin 300 MG CAP PO SCH ×2 (10:03→20:14)
[2021-04-08] MEDS: Vancomycin 1 GM in Premix Bag 1 BAG IVPB SCH (10:11)
[2021-04-08] MEDS ORDERED: VANCOMYCIN 1.75 GM/350 ML BAG 1.75 GM in Premix Bag 1 BAG IVPB SCH (10:30)
[2021-04-08] MEDS: cefTRIAXone\\ROCEPHIN 2 GM in Sodium Chloride 0.9% 100 ML IVPB SCH (13:46)
[2021-04-09] MEDS: Sodium Chloride 0.9% 1,000 ML IV SCH ×3 (03:13→22:46)
[2021-04-09] MEDS: Levothyroxine Sodium 125 MCG TAB PO SCH (04:27)
[2021-04-09] MEDS: Senokot S 8.6-50 MG TAB PO SCH ×2 (09:19→22:02)
[2021-04-09] MEDS: Rifampin 300 MG CAP PO SCH ×2 (09:20→22:02)
[2021-04-09] MEDS: Multivitamin W/ Minerals 1 TAB PO SCH (09:20)
[2021-04-09] MEDS: Metoprolol Tartrate 25 MG TAB PO SCH ×2 (09:21→22:02)
[2021-04-09] MEDS: Ferrous Gluconate 324 MG TAB PO SCH ×2 (09:21→16:34)
[2021-04-09] MEDS: Aspirin 81 mg Enteric Coated Tablet PO SCH ×2 (09:22→22:02)
[2021-04-09] MEDS: VANCOMYCIN 1.75 GM/350 ML BAG 1.75 GM in Premix Bag 1 BAG IVPB SCH (10:17)
[2021-04-09] MEDS: cefTRIAXone\\ROCEPHIN 2 GM in Sodium Chloride 0.9% 100 ML IVPB SCH (13:19)
[2021-04-10] MEDS: diphenhydrAMINE 25 MG CAP PO PRN ×2 (02:24→19:40)
[2021-04-10] MEDS: traMADol HCl 50 MG TAB PO PRN ×2 (02:24→19:40)
[2021-04-10] MEDS: Levothyroxine Sodium 125 MCG TAB PO SCH (05:21)
[2021-04-10] MEDS: Ferrous Gluconate 324 MG TAB PO SCH ×2 (09:15→16:43)
[2021-04-10] MEDS: Aspirin 81 mg Enteric Coated Tablet PO SCH ×2 (09:15→19:39)
[2021-04-10] MEDS: Senokot S 8.6-50 MG TAB PO SCH ×2 (09:15→19:46)
[2021-04-10] MEDS: Multivitamin W/ Minerals 1 TAB PO SCH (09:16)
[2021-04-10] MEDS: Rifampin 300 MG CAP PO SCH ×2 (09:16→19:48)
[2021-04-10] MEDS: Metoprolol Tartrate 25 MG TAB PO SCH ×2 (09:16→19:40)
[2021-04-10 09:40] LABS: Vancomycin, Trough 16.1 ug/mL
[2021-04-10] MEDS: VANCOMYCIN 1.75 GM/350 ML BAG 1.75 GM in Premix Bag 1 BAG IVPB SCH (10:24)
[2021-04-10] MEDS: Sodium Chloride 0.9% 1,000 ML IV SCH ×2 (12:34→23:05)
[2021-04-10] MEDS: cefTRIAXone\\ROCEPHIN 2 GM in Sodium Chloride 0.9% 100 ML IVPB SCH (12:36)
[2021-04-10] MEDS: Scopolamine 1.5 mg/72 hour Patch TOP SCH (12:37)
[2021-04-11] MEDS: Acetaminophen 325 MG TAB PO PRN ×3 (00:30→20:37)
[2021-04-11] MEDS: Sodium Chloride 0.9% 1,000 ML IV SCH ×2 (00:58→16:24)
[2021-04-11] MEDS: Levothyroxine Sodium 125 MCG TAB PO SCH (06:20)
[2021-04-11] MEDS: Aspirin 81 mg Enteric Coated Tablet PO SCH ×2 (09:07→20:38)
[2021-04-11] MEDS: Triamterene/Hydrochlorothiazide 37.5 mg/25 mg Tablet PO SCH (09:07)
[2021-04-11] MEDS: Multivitamin W/ Minerals 1 TAB PO SCH (09:08)
[2021-04-11] MEDS: Senokot S 8.6-50 MG TAB PO SCH ×2 (09:08→20:38)
[2021-04-11] MEDS: Ferrous Gluconate 324 MG TAB PO SCH ×2 (09:08→16:25)
[2021-04-11] MEDS: Rifampin 300 MG CAP PO SCH ×2 (09:08→20:54)
[2021-04-11] MEDS: Metoprolol Tartrate 25 MG TAB PO SCH ×2 (09:09→20:39)
[2021-04-11] MEDS: VANCOMYCIN 1.75 GM/350 ML BAG 1.75 GM in Premix Bag 1 BAG IVPB SCH (10:10)
[2021-04-11] MEDS: cefTRIAXone\\ROCEPHIN 2 GM in Sodium Chloride 0.9% 100 ML IVPB SCH (12:06)
[2021-04-11] MEDS ORDERED: Melatonin 3 MG TAB PO PRN (20:48)
[2021-04-11] MEDS: diphenhydrAMINE 25 MG CAP PO PRN (20:54)
[2021-04-12] MEDS: Sodium Chloride 0.9% 1,000 ML IV SCH ×3 (02:16→20:27)
[2021-04-12] MEDS: Levothyroxine Sodium 125 MCG TAB PO SCH (06:30)
[2021-04-12] MEDS: Ferrous Gluconate 324 MG TAB PO SCH ×2 (09:02→18:09)
[2021-04-12] MEDS: VANCOMYCIN 1.75 GM/350 ML BAG 1.75 GM in Premix Bag 1 BAG IVPB SCH (09:02)
[2021-04-12] MEDS: Multivitamin W/ Minerals 1 TAB PO SCH (09:02)
[2021-04-12] MEDS: Metoprolol Tartrate 25 MG TAB PO SCH ×2 (09:02→20:27)
[2021-04-12] MEDS: Aspirin 81 mg Enteric Coated Tablet PO SCH ×2 (09:02→20:27)
[2021-04-12] MEDS: Senokot S 8.6-50 MG TAB PO SCH ×2 (09:02→20:27)
[2021-04-12] MEDS: Rifampin 300 MG CAP PO SCH ×2 (09:05→20:27)
[2021-04-12] MEDS: cefTRIAXone\\ROCEPHIN 2 GM in Sodium Chloride 0.9% 100 ML IVPB SCH (13:54)
[2021-04-12 20:45] LABS: Bacteria/HPF None Seen HPF (None Seen); Bilirubin Negative (Negative); Blood, Urine Trace (Negative); Clarity Clear (Clear); Glucose, Urine (Dipstick) Normal (Negative); Ketone, Urine Negative (Negative); Leukocyte Negative Leu/uL (Negative); Nitrite Negative (Negative); Protein, Urine (Dipstick) 20 mg/dL (Neg-Trace); RBC/HPF 0-3 HPF (0-3); Specific Gravity, Urine 1.028 (1.002-1.036); Squamous Epithelial 0-3 HPF (0-3); Urobilinogen Normal mg/dL (Less than 2); WBC/HPF 0-3 HPF (0-3); pH, Urine 5.5 (5.0-9.0)
[2021-04-12 20:48] LABS: Urine Culture Reflex No No
[2021-04-13] MEDS: Levothyroxine Sodium 125 MCG TAB PO SCH (06:25)
[2021-04-13 07:47] VITALS: BP 138/76; TEMP 98.6
[2021-04-13] MEDS: Rifampin 300 MG CAP PO SCH (08:51)
[2021-04-13] MEDS: Multivitamin W/ Minerals 1 TAB PO SCH (08:51)
[2021-04-13] MEDS: Senokot S 8.6-50 MG TAB PO SCH (08:51)
[2021-04-13] MEDS: Aspirin 81 mg Enteric Coated Tablet PO SCH (08:52)
[2021-04-13] MEDS: Triamterene/Hydrochlorothiazide 37.5 mg/25 mg Tablet PO SCH (08:52)
[2021-04-13] MEDS: VANCOMYCIN 1.75 GM/350 ML BAG 1.75 GM in Premix Bag 1 BAG IVPB SCH (08:52)
[2021-04-13] MEDS: Metoprolol Tartrate 25 MG TAB PO SCH (08:52)
[2021-04-13] MEDS: Ferrous Gluconate 324 MG TAB PO SCH (08:52)
[2021-04-13] MEDS: Sodium Chloride 0.9% 1,000 ML IV SCH (08:58)
[2021-04-13 09:22] LABS: Vancomycin, Trough 20.2 ug/mL
== END 2021-04-13 12:00 | disposition swing bed (61) | DRG 468 ==
LOC: EDSTATUS 14:45 → SURG A 04-04 09:22 → SURG B 04-04 18:14
PROVIDERS: ADMIT Orthopaedic Surgery; ATTEND Orthopaedic Surgery
PROC: 0SPD0JZ Removal of Synthetic Substitute from Left Knee Joint, Open Approach (ICD-10-PCS; principal; 2021-04-04)
PROC: 0SRD0J9 Replacement of Left Knee Joint with Synthetic Substitute, Cemented, Open Approach (ICD-10-PCS; 2021-04-04)
PROC: 02HV33Z Insertion of Infusion Device into Superior Vena Cava, Percutaneous Approach (ICD-10-PCS; 2021-04-05)
PROC: B548ZZA Ultrasonography of Superior Vena Cava, Guidance (ICD-10-PCS; 2021-04-05)
DX: T84.54XA Infection and inflammatory reaction due to internal left knee prosthesis, initial encounter (principal); Z20.822 Contact with and (suspected) exposure to COVID-19; Z96.652 Presence of left artificial knee joint; Y83.8 Other surgical procedures as the cause of abnormal reaction of the patient, or of later complication, without mention of misadventure at the time of the procedure; I48.91 Unspecified atrial fibrillation; M17.11 Unilateral primary osteoarthritis, right knee; I10 Essential (primary) hypertension; J30.2 Other seasonal allergic rhinitis; E03.9 Hypothyroidism, unspecified; F32.A Depression, unspecified; Z90.710 Acquired absence of both cervix and uterus; Z90.49 Acquired absence of other specified parts of digestive tract; Z79.899 Other long term (current) drug therapy; Z79.890 Hormone replacement therapy; Z51.5 Encounter for palliative care
CPT/HCPCS: 36415; 36569; 80202; 81001; 82565; 85027; 86140; 87070; 87205; C1713; C1751; J0690; J0696; J1100; J1644; J2250; J2405; J2704; J3010; J3260; J3370; J3490; J7050

== ENCOUNTER 2021-12-21 13:20 | Inpatient (IN) | payer MEDICARE, BC ==
[2021-12-21 14:11] LABS: #Basophils 0.1 thou/uL (0.0-0.2); #Eosinphils 0.1 thou/uL (0.0-0.7); #Lymphocytes 3.6 thou/uL (1.20-3.40); #Monocytes 0.6 thou/uL (0.11-0.59); #Neutrophils 4.8 thou/uL (1.40-6.50); %Basophils 0.6 % (0.0-1.0); %Eosinophils 1.5 % (0.0-10.0); %Lymphocytes 39.3 % (21.0-51.0); %Monocytes 6.3 % (0.0-10.0); %Neutrophils 52.3 % (42.0-75.0); Hemoglobin 12.5 g/dL (12.0-16.0); Mean Corpuscular HGB CONC 33.2 g/dL (32.0-36.0); Mean Corpuscular Hemoglobin 31.8 pg (27.0-31.0); Mean Corpuscular Volume 95.9 fL (78.0-98.0); Mean Platelet Volume 7.9 fL (7.4-10.4); Platelet Count 226 thou/uL (130-400); RBC Distribution Width 11.6 % (11.5-14.5); Red Blood Cell (RBC) Count 3.93 mill/uL (4.20-5.40); White Blood Cell (WBC) Count 9.2 thou/uL (4.8-10.8)
[2021-12-21 14:27] LABS: ALT (SGPT) 10 U/L (8-55); AST (SGOT) 17 U/L (5-34); Albumin 3.3 g/dL (3.4-4.8); Alkaline Phosphatase 102 U/L (40-110); Anion Gap 12 mmol/L (10-20); BUN (Urea Nitrogen) 25 mg/dL (9.8-20.1); Bilirubin, Total 0.3 mg/dL (0.2-1.2); Calc. Creatinine Clearance 0 mL/min (70-130); Carbon Dioxide 24 mmol/L (23-31); Chloride 108 mmol/L (98-107); Estimated GFR 75; Globulin 2.3 g/dL (2.4-3.5); Glucose 108 mg/dL (83-110); Potassium 4.2 mmol/L (3.5-5.1); Protein, Total 5.6 g/dL (5.8-8.1); Sodium 140 mmol/L (136-145)
[2021-12-21] MEDS ORDERED: Aspirin Chewable 81 MG TAB ONE (15:22)
[2021-12-21] MEDS ORDERED: Furosemide 20 MG/2 ML VIAL ONE (15:22)
[2021-12-21] MEDS ORDERED: Senokot S 8.6-50 MG TAB PO PRN (15:30)
[2021-12-21] MEDS ORDERED: Acetaminophen 325 MG TAB PO PRN (15:30)
[2021-12-21] MEDS ORDERED: Ondansetron ODT 4 MG TAB PO PRN (15:30)
[2021-12-21 17:56] VITALS: BMI 24.0
[2021-12-21] MEDS: Famotidine 20 MG TAB PO SCH (21:42)
[2021-12-22 05:28] LABS: ALT (SGPT) 7 U/L (8-55); AST (SGOT) 13 U/L (5-34); Albumin 3.1 g/dL (3.4-4.8); Alkaline Phosphatase 94 U/L (40-110); Anion Gap 16 mmol/L (10-20); BUN (Urea Nitrogen) 21 mg/dL (9.8-20.1); Bilirubin, Total 0.6 mg/dL (0.2-1.2); Calc. Creatinine Clearance 69 mL/min (70-130); Calcium 8.9 mg/dL (7.8-10.44); Carbon Dioxide 23 mmol/L (23-31); Chloride 104 mmol/L (98-107); Estimated GFR 77; Globulin 2.2 g/dL (2.4-3.5); Glucose 96 mg/dL (83-110); Potassium 3.8 mmol/L (3.5-5.1); Protein, Total 5.3 g/dL (5.8-8.1); Sodium 139 mmol/L (136-145)
[2021-12-22 05:39] LABS: Band 2 % (5-11); Hemoglobin 12.2 g/dL (12.0-16.0); Lymphocytes 50 % (21-51); MDiff Complete? YES; Mean Corpuscular HGB CONC 33.4 g/dL (32.0-36.0); Mean Corpuscular Hemoglobin 32.1 pg (27.0-31.0); Mean Corpuscular Volume 96.2 fL (78.0-98.0); Mean Platelet Volume 8.1 fL (7.4-10.4); Metamyelocyte 1 % (0-0); Monocytes 1 % (0-10); Neutrophil 42 % (42-75); Platelet Count 207 thou/uL (130-400); Platelet Morphology Comment Appears Adequate; RBC Distribution Width 11.7 % (11.5-14.5); RBC Morphology Normal; Reactive Lymphocytes 4 % (0-10)
[2021-12-22] MEDS: Furosemide 40 MG/4 ML VIAL SLOW IVP SCH ×2 (05:45→12:28)
[2021-12-22] MEDS: Enoxaparin Sodium 30 MG/0.3 ML SYRINGE SC SCH (09:01)
[2021-12-22] MEDS: Famotidine 20 MG TAB PO SCH (09:01)
[2021-12-22] MEDS ORDERED: Lisinopril 5 MG TAB PO SCH (11:15)
[2021-12-22] MEDS ORDERED: Melatonin 3 MG TAB PO PRN (19:34)
[2021-12-22] MEDS: Doxycycline 100 MG CAP PO SCH (21:19)
[2021-12-22] MEDS: Metoprolol Tartrate 25 MG TAB PO SCH (21:20)
[2021-12-22] MEDS: Diphenoxylate HCl/Atropine Tablet PO PRN (21:22)
[2021-12-23 05:23] LABS: ALT (SGPT) 8 U/L (8-55); AST (SGOT) 14 U/L (5-34); Albumin 3.2 g/dL (3.4-4.8); Alkaline Phosphatase 91 U/L (40-110); Anion Gap 17 mmol/L (10-20); BUN (Urea Nitrogen) 30 mg/dL (9.8-20.1); Bilirubin, Total 0.6 mg/dL (0.2-1.2); Calc. Creatinine Clearance 44 mL/min (70-130); Calcium 9.3 mg/dL (7.8-10.44); Carbon Dioxide 26 mmol/L (23-31); Chloride 99 mmol/L (98-107); Estimated GFR 45; Globulin 2.2 g/dL (2.4-3.5); Glucose 104 mg/dL (83-110); Potassium 3.6 mmol/L (3.5-5.1); Protein, Total 5.4 g/dL (5.8-8.1); Sodium 138 mmol/L (136-145)
[2021-12-23 05:33] LABS: Free T4 (Free Thyroxine) 0.87 ng/dL (0.70-1.48)
[2021-12-23 05:46] LABS: Eosinophils 1 % (0-10); Hemoglobin 12.3 g/dL (12.0-16.0); Lymphocytes 62 % (21-51); MDiff Complete? YES; Mean Corpuscular HGB CONC 33.5 g/dL (32.0-36.0); Mean Corpuscular Hemoglobin 32.1 pg (27.0-31.0); Mean Corpuscular Volume 95.8 fL (78.0-98.0); Mean Platelet Volume 7.9 fL (7.4-10.4); Monocytes 2 % (0-10); Neutrophil 33 % (42-75); Platelet Count 223 thou/uL (130-400); Platelet Morphology Comment Appears Adequate; RBC Distribution Width 11.8 % (11.5-14.5); RBC Morphology Normal; Red Blood Cell (RBC) Count 3.82 mill/uL (4.20-5.40)
[2021-12-23] MEDS: Levothyroxine Sodium 125 MCG TAB PO SCH (06:28)
[2021-12-23] MEDS: Furosemide 40 MG/4 ML VIAL SLOW IVP SCH (06:28)
[2021-12-23] MEDS: Metoprolol Tartrate 25 MG TAB PO SCH ×2 (10:38→22:08)
[2021-12-23] MEDS: Furosemide 20 MG TAB PO SCH (10:38)
[2021-12-23] MEDS: Doxycycline 100 MG CAP PO SCH ×2 (10:38→22:08)
[2021-12-23] MEDS: Lisinopril 5 MG TAB PO SCH (10:38)
[2021-12-23] MEDS: Sodium Chloride 0.9% 1,000 ML IV SCH (10:39)
[2021-12-23] MEDS: Enoxaparin Sodium 30 MG/0.3 ML SYRINGE SC SCH (10:39)
[2021-12-23] MEDS: Diphenoxylate HCl/Atropine Tablet PO PRN (10:40)
[2021-12-24] MEDS: Sodium Chloride 0.9% 1,000 ML IV SCH (01:46)
[2021-12-24 05:18] LABS: Eosinophils 1 % (0-10); Hemoglobin 11.5 g/dL (12.0-16.0); Hypochromia SLIGHT = 6-15 cells (100X) (0-5/hpf); Lymphocytes 28 % (21-51); MDiff Complete? YES; Mean Corpuscular HGB CONC 33.5 g/dL (32.0-36.0); Mean Corpuscular Hemoglobin 32.4 pg (27.0-31.0); Mean Corpuscular Volume 96.7 fL (78.0-98.0); Mean Platelet Volume 7.9 fL (7.4-10.4); Monocytes 12 % (0-10); Neutrophil 38 % (42-75); Platelet Count 188 thou/uL (130-400); Platelet Morphology Comment Appears Decreased; RBC Distribution Width 11.6 % (11.5-14.5); Reactive Lymphocytes 21 % (0-10); Red Blood Cell (RBC) Count 3.56 mill/uL (4.20-5.40); White Blood Cell (WBC) Count 6.1 thou/uL (4.8-10.8)
[2021-12-24 05:24] LABS: ALT (SGPT) 7 U/L (8-55); AST (SGOT) 12 U/L (5-34); Albumin 2.8 g/dL (3.4-4.8); Alkaline Phosphatase 78 U/L (40-110); Anion Gap 10 mmol/L (10-20); BUN (Urea Nitrogen) 28 mg/dL (9.8-20.1); Bilirubin, Total 0.4 mg/dL (0.2-1.2); Calc. Creatinine Clearance 52 mL/min (70-130); Calcium 8.5 mg/dL (7.8-10.44); Carbon Dioxide 27 mmol/L (23-31); Chloride 104 mmol/L (98-107); Estimated GFR 58; Globulin 2.1 g/dL (2.4-3.5); Glucose 93 mg/dL (83-110); Potassium 3.3 mmol/L (3.5-5.1); Protein, Total 4.9 g/dL (5.8-8.1); Sodium 138 mmol/L (136-145)
[2021-12-24] MEDS: Levothyroxine Sodium 125 MCG TAB PO SCH (05:25)
[2021-12-24] MEDS ORDERED: Electrolyte Replacement Protocol 1 EACH FS SCH (06:30)
[2021-12-24] MEDS ORDERED: Potassium Chloride 20 MEQ TAB PO SCH (08:00)
[2021-12-24] MEDS ORDERED: Magnesium 2 GM/50 ML(in water) 2 GM in Premix Bag 1 BAG IVPB SCH (09:00)
[2021-12-24] MEDS: Enoxaparin Sodium 30 MG/0.3 ML SYRINGE SC SCH (09:51)
[2021-12-24] MEDS: Lisinopril 5 MG TAB PO SCH (09:51)
[2021-12-24] MEDS: Furosemide 20 MG TAB PO SCH (09:51)
[2021-12-24] MEDS: Doxycycline 100 MG CAP PO SCH ×2 (09:51→20:13)
[2021-12-24] MEDS: Metoprolol Tartrate 25 MG TAB PO SCH ×2 (09:51→20:13)
[2021-12-24] MEDS: Enoxaparin Sodium 80 MG/0.8 ML SYRINGE SC SCH (20:14)
[2021-12-25] MEDS: Sodium Chloride 0.9% 1,000 ML IV SCH (01:14)
[2021-12-25] MEDS: Levothyroxine Sodium 125 MCG TAB PO SCH (05:11)
[2021-12-25 05:13] LABS: Anion Gap 10 mmol/L (10-20); BUN (Urea Nitrogen) 26 mg/dL (9.8-20.1); Calc. Creatinine Clearance 66 mL/min (70-130); Calcium 8.6 mg/dL (7.8-10.44); Carbon Dioxide 28 mmol/L (23-31); Chloride 108 mmol/L (98-107); Estimated GFR 77; Glucose 94 mg/dL (83-110); Magnesium 2.4 mg/dL (1.6-2.6); Potassium 4.2 mmol/L (3.5-5.1); Sodium 142 mmol/L (136-145)
[2021-12-25] MEDS: Enoxaparin Sodium 80 MG/0.8 ML SYRINGE SC SCH (10:23)
[2021-12-25] MEDS: Metoprolol Tartrate 25 MG TAB PO SCH ×2 (10:24→20:56)
[2021-12-25] MEDS: Lisinopril 5 MG TAB PO SCH (10:24)
[2021-12-25] MEDS: Furosemide 20 MG TAB PO SCH (10:24)
[2021-12-25] MEDS: Doxycycline 100 MG CAP PO SCH ×2 (10:25→20:56)
[2021-12-25] MEDS: Apixaban 5 MG TAB PO SCH (20:56)
[2021-12-26 04:47] VITALS: TEMP 97.6
[2021-12-26] MEDS ORDERED: Levothyroxine Sodium 125 MCG TAB PO SCH (06:00)
[2021-12-26 08:35] VITALS: BP 151/65
[2021-12-26] MEDS ORDERED: Lisinopril 5 MG TAB PO SCH (09:00)
[2021-12-26] MEDS: Doxycycline 100 MG CAP PO SCH (10:20)
[2021-12-26] MEDS: Apixaban 5 MG TAB PO SCH (10:20)
[2021-12-26] MEDS: Furosemide 20 MG TAB PO SCH (10:20)
[2021-12-27] MEDS ORDERED: Levothyroxine Sodium 112 MCG TAB PO SCH (06:00)
== END 2021-12-26 11:32 | disposition home or self-care (01) | DRG 309 ==
LOC: ERS 13:20 → SUATTDRO 13:20 → 2NO 15:30
PROVIDERS: ADMIT Internal Medicine; ATTEND Internal Medicine
DX: I47.1 Supraventricular tachycardia (principal); I82.511 Chronic embolism and thrombosis of right femoral vein; Z20.822 Contact with and (suspected) exposure to COVID-19; I10 Essential (primary) hypertension; E03.9 Hypothyroidism, unspecified; K21.9 Gastro-esophageal reflux disease without esophagitis; I48.0 Paroxysmal atrial fibrillation; Z96.652 Presence of left artificial knee joint; F41.9 Anxiety disorder, unspecified; K58.9 Irritable bowel syndrome, unspecified; E87.6 Hypokalemia; Z90.49 Acquired absence of other specified parts of digestive tract; Z90.710 Acquired absence of both cervix and uterus; Z79.890 Hormone replacement therapy; Z79.899 Other long term (current) drug therapy; Z88.5 Allergy status to narcotic agent; Z79.82 Long term (current) use of aspirin
CPT/HCPCS: 36415; 71045; 71275; 80048; 80053; 83735; 83880; 84439; 84443; 84481; 84484; 85025; 93005; 93306; 93970; 96374; J1650; J1940; J3475; J7050; U0003; U0005

== ENCOUNTER 2024-06-05 10:48 | Outpatient (CLI) | payer MEDICARE, BC | END 2024-06-05 10:49 | disposition home or self-care (01) | LOC: BICMAMMO 10:48 | PROVIDERS: ATTEND Registered Nurse | DX: M81.0 Age-related osteoporosis without current pathological fracture (principal); Z78.0 Asymptomatic menopausal state; M85.88 Other specified disorders of bone density and structure, other site | CPT/HCPCS: 77080 ==